=== PATIENT | female | born 1955 | race Caucasian/White ===

== ENCOUNTER 2017-12-31 14:47 | Emergency (ER) | payer OTHER, SELFPAY ==
[2017-12-31 14:48] VITALS: BP 158/80; PULSE 68; RESP 18; TEMP 36.9; O2SAT 97; BMI 32.0
--- NOTE | 2017-12-31 15:08 | RAD_ITS ---
STUDY: X-RAY - LEFT KNEE REASON FOR EXAM: Female, 62 years old. Left-sided knee pain after recent trauma. TECHNIQUE: 3 view(s) of the knee. COMPARISON: None. FINDINGS: Normal visualized distal femur. Normal visualized proximal tibia and fibula. Normal proximal tibiofibular articulation. Normal medial femorotibial compartment. Normal lateral femorotibial compartment. Normal patellofemoral articulation. There is a small enthesophyte at the quadriceps tendon insertion onto the patella. There is a moderate volume joint effusion. The soft tissue structures are unremarkable. RAD/Knee 3 Views IMPRESSION: 1. Joint effusion. 2. Patellar enthesopathy. 3. No definite evidence for acute fracture. If there is still clinical concern for acute fracture, follow-up radiographs in 7-10 days maybe helpful in evaluating a healing radiographically occult fracture. Electronically Signed: Melba Styles MD at 15:43 EDT , Service support ,
[2017-12-31] MEDS: HYDROcodone Bitartrate/Apap 5/325 Tablet PO (15:17)
--- NOTE | 2017-12-31 15:49 | ED.DCSUM_ITS ---
- ER Visit Summary Date of Service: 12/31/17 Chief Complaint: [Injury left knee] History of Present Illness: The patient is a 62 F [presents to the emergency department with injury to her left knee that occurred this morning around 11:30 AM. Patient states she was standing on a chair painting when she fell off the chair and upon landing to the ground twisted the knee. Patient unable to bear weight afterwards. Patient denies any other injury.] Physical Examination: [HEENT-PERRLA, EOMI. Cranial nerves II through XII grossly intact. TMs clear. Mucous membranes moist. No adenopathy. Cardiovascular-regular rate and rhythm without murmur or ectopy Lungs-clear to auscultation, chest wall stable without crepitus or subcu emphysema Abdomen-normoactive bowel sounds, soft, nontender, no rebound or rigidity, no peritoneal signs. Extremities-intact ?4, normal range of motion, normal pulses, atraumatic. Left knee-patient has some diffuse soft tissue swelling and a joint effusion noted. Patient has pain with range of motion flexion extension of the knee. Patient neurovascular intact distally. She does not tolerate ligamentous exam secondary to pain.] Test Results: [X-rays of the left knee obtained showed no fractures. Patient did have an effusion noted.] Emergency Department Course and Treatment: [Patient was given 1 [place] for pain. Patient given a knee immobilizer and crutches.] Treatment Plan: [Patient will be given a prescription for [place] for pain and she is advised to take ibuprofen or Aleve for discomfort as well.] Disposition: [Discharged home in stable condition. Patient advised to follow- up with orthopedics on-call within next 3-5 days.] Impression: [Left knee sprain-possible internal derangement.] This note was generated with Launchr dictation software. It may contain incorrect words, spelling, and punctuation that were not noted in review of the chart prior to signing ED Disposition - Plan for ED Patient: Chief Complaint: Lower Extremity Injury Referrals: Byron Sanders [Primary Care Provider] -
--- NOTE | 2017-12-31 15:49 | ED.DEP ---
ED Disposition - Plan for ED Patient: Chief Complaint: Lower Extremity Injury Instructions: ED Sprain Knee, ED Meniscal Injury Knee Poss Prescriptions: Hydrocodone Bitart/Apap 5-325 [[place] 5/325] 1 - 2 tab PO Q4H PRN PRN 5 Days #20 tab PRN Reason: Pain Referrals: Byron Sanders [Primary Care Provider] - Peri Aggarwal DO [STAFF PHYSICIAN] - 3-5 Days
[2017-12-31 15:58] VITALS: BP 140/75; PULSE 66; RESP 18; O2SAT 94
== END 2017-12-31 16:15 | disposition home or self-care (01) ==
PROVIDERS: Emergency Provider Emergency Medicine; Family Provider Family Medicine; PCP Family Medicine
DX: S83.92XA Sprain of unspecified site of left knee, initial encounter (principal); M25.462 Effusion, left knee; I10 Essential (primary) hypertension; F41.9 Anxiety disorder, unspecified; Z79.899 Other long term (current) drug therapy; W07.XXXA Fall from chair, initial encounter; Y93.E9 Activity, other interior property and clothing maintenance; Y92.009 Unspecified place in unspecified non-institutional (private) residence as the place of occurrence of the external cause; Y99.8 Other external cause status
CPT/HCPCS: 73562; 99284

== ENCOUNTER 2019-06-24 11:58 | Day surgery (SDC) | payer OTHER, SELFPAY ==
--- NOTE | 2019-06-20 16:13 | EKG12_ITS ---
Test Reason : PREOP Blood Pressure : / mmHG Vent. Rate : 063 BPM Atrial Rate : 063 BPM P-R Int : 174 ms QRS Dur : 106 ms QT Int : 438 ms P-R-T Axes : 063 032 042 degrees QTc Int : 448 ms Normal sinus rhythm Possible Left atrial enlargement Borderline ECG Confirmed by JORJE RIBEIRO ([id number]), society editor MARTY BRUNNER ([id number]) on 06/24/2019 2:02:34 PM Referred By: Markell Quinones Confirmed By:JORJE RIBEIRO
[2019-06-20 17:15] LABS: Hematocrit 44.4 % (37-47); Hemoglobin 14.1 g/dL (12.0-15.0); Mean Corp Hgb Conc 31.8 g/dL (32-36); Mean Corpuscular Hgb 30.8 pg (27.0-32.0); Mean Corpuscular Volume 96.9 fL (81-99); Mean Platelet Vol. 10.4 fl (6.2-12.0); Platelet Count 363 K/mm3 (150-450); RBC Distribution Width CV 11.3 % (11.6-14.6); RBC Distribution Width SD 40.1 fl (35.1-43.9); Red Blood Count 4.58 M/mm3 (4.2-5.4); White Blood Count 8.7 K/mm3 (4.4-11.0)
[2019-06-20 17:29] LABS: International Normalized Ratio 1.1; Prothrombin Time (Protime)PT. 14.3 SECONDS (11.7-14.9)
[2019-06-20 17:30] LABS: Partial Thromboplast Time 30.7 Seconds (24.1-36.2)
[2019-06-20 18:03] LABS: ALB/GLOB Ratio 1.1 RATIO (0.9-2.4); AST(SGOT) 15 U/L (15-37); Alanine Aminotransfer ALT/SGPT 22 U/L (13-56); Albumin, Serum 3.9 g/dL (3.2-5.0); Alkaline Phosphatase 119 U/L (45-117); Anion Gap 8 (5-15); BUN 15 mg/dL (7-18); BUN/Creat Ratio 18.8 RATIO (10-20); Calcium,Total 8.8 mg/dL (8.5-10.1); Chloride 107 mmol/L (98-107); EST Glomerular Filtration Rate 77 mL/min (>60); Est Glom Filt Rate - Afr Amer 94 mL/min (>60); Globulin 3.5 g/dL (2.2-4.2); Glucose 84 mg/dL (74-106); Potassium 3.2 mmol/L (3.5-5.1); Protein, Total 7.4 g/dL (6.4-8.2); Sodium Level 143 mmol/L (136-145)
--- NOTE | 2019-06-23 16:17 | PCM.HP.BLA ---
History and Physical Date of Admission: 06/24/19 Surgical History and Physical Ida Young, a 63 year old female 3 0 1 0 3, presents for Posterior, possible Anterior Repair on June at 8:45. -- Prolapse Symptoms; Rectocele -- Ida has had prior hysterectomy. Complains of her insides coming out. She has problems having a bowel movement due to feeling like she is pushing too hard and bladder will come out. Sometimes she has to push her bladder back inside.Pt has hx of anxiety, hypertension and mitral valve prolapse. Prolapse symptoms which began years ago. Ida claims it started gradually It occurs all the time. It is located in the vagina. Ida characterizes the quality pressure. Severity is moderate and worsening; It is aggravated by gardening. Associated signs and symptoms are problems with bowel movements. Additional comments are: prior hysterectomy; was on estrogen for years and stopped it about 4-5 years ago. MEDICATIONS HISTORY: Current medications prescribed by our practice are: 1. Estrace 0.01% (0.1 mg/gram) vaginal cream, 1/2 gm per vagina twice weekly at Patient is also takin. citalopram 20 mg tablet, daily 2. diltiazem ER 240 mg tablet,extended release 24 hr, bid ALLERGIES: No Known Drug Allergies Infections - Chicken pox, Mumps and Measles Illnesses - hypertension, mitral valve prolapse and anxiety Accidents - None Hospitalizations - Childbirth and surgery Review of Systems: GENERAL - Denies fever, or chills SKIN - Denies skin changes EYES - Denies visual changes EARS - Denies difficulty hearing NOSE - Denies nasal congestion or bleeding MOUTH - Denies sore throat or difficulty swallowing NECK - Denies pain or swelling RESPIRATORY - Denies shortness of breath or wheezing CARDIOVASCULAR - Denies palpitations or chest pain GASTROINTESTINAL - Denies nausea, vomiting, diarrhea, constipation GENITOURINARY - Denies dysuria, frequency of urination, incontinence of urine MUSCULOSKELETAL - Denies joint or muscle pain NEUROLOGICAL - Denies localized numbness or weakness PSYCHIATRIC - Denies depression or anxiety ENDOCRINE - Denies heat or cold intolerance, weight loss or gain HEMATO-IMMUNOLOGIC - Denies excessive bleeding with cuts SOCIAL HISTORY: Alcohol Use - denies drinking Smoking - denies smoking Diet - moderate, balanced diet Lifestyle - Exercise - none Seat Belt Use - always Employer - [employer] 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 Hysterectomy 2. Herniated Disc 1989 3. 2 D and C PHYSICAL EXAM BP- 130/72 Sitting, Right arm, regular cuff Temp- 98 Taken Orally Weight- 143.55498 lbs Height- 62.75 inch BMI:25.62 CONSTITUTIONAL - NAD, well nourished, and well developed SKIN - No rash, lesions, or ulcers HEENT - Normocephalic, PERRLA, EOMI NECK - No nodes, no nuchal rigidity and thyroid normal size and texture LYMPH NODES - Palpation of lymph nodes in neck and groins within normal limits LUNGS - CTA x2 without wheezes, crackles or rales CARDIAC - Regular rate and rhythm without rubs, murmurs, or gallops ABDOMEN - Without hepatosplenomegaly, distention, masses, rebound, or guarding; normal bowel sounds; no hernias EXTREMITIES - No edema or calf tenderness NEUROLOGICAL - Cranial nerves II-XII grossly intact PSYCHIATRIC - A and O to time, place, person, mood and affect External Genitial Vagina - non-tender without lesions Urethra/Urethral Meatus - non-tender Bladder - non-tender Vagina - loss of rugae, mild cystocele and large rectocele Cervix - Prior hysterectomy-well healed vaginal cuff Uterus - prior hysterectomy-absent Adnexa - clear without masses or tenderness ASSESSMENT/PLAN: 1. Cystocele Midline and Rectocele Discussed options for treatment of this very symptomatic rectocele (possible cystocele) including expectant management, pessary use, or proceeding with Posterior Repair (possible Anterior Repair). Pt desires the surgery. Discussed RBAs and all questions answered.
[2019-06-24] VITALS (11 sets, daily range): BP systolic 86–140; BP diastolic 49–83; PULSE 53–79; RESP 14–18; TEMP 36.2–36.8; O2SAT 92–97; BMI 23.8
[2019-06-24] MEDS: Lactated Ringers 1,000 ML 100 ML IV ×2 (13:13→15:15)
--- NOTE | 2019-06-24 13:30 | VAGMU_PTH ---
PATIENT: HOSSEIN HADDAD LOC: [facility] [place] U#:[id number] AGE/SX: 63/F ROOM: RE06/24/[address]: Dr. Markell Quinones MD : [id number] BED: DIS: 06/25/2019 SPEC #: [id number] RECD: 06/25/19 08:07 STATUS: KYLIE REVanessa #: [id number] ALLEN: 06/24/19 13:[address]: Markell Quinones DEPT: SURGICAL PATHOLOGY RECD BY: Tong Robb ENTERED: 06/25/19 11:38 SP TYPE: VAG MUCOSA OTHR DR: Dr. Byron Sanders, DO Tissues: Vagina, NOS Procedures: Surgery Specimen Level III HEADER OPERATION: Posterior repair PRE-OP DIAGNOSIS: Cystocele midline and rectocele TISSUE SUBMITTED: Vaginal mucosa MICROSCOPIC DIAGNOSIS Vaginal mucosa, posterior repair: Fragments of benign squamous mucosa with mild chronic inflammation. AM:dagoberto 06/26/19 MICROSCOPIC DESCRIPTION Slides are reviewed. GROSS DESCRIPTION Received in fixative is one container labeled with the patient's name and designated vaginal mucosa. The specimen consists of glistening irregular fragments of light jo mucosa with attached submucosal tissue measuring in aggregate 6.5 x 5 x 1 cm. No mucosal mass lesions are identified. Pattern Fitter sections are submitted in one cassette. / AM:dagoberto 06/25/19 TC:3 CPT: 16764
--- NOTE | 2019-06-24 14:38 | PCM.OPRPT ---
Report of Operation Date of Procedure: 06/24/19 Pre-Operative Diagnosis: Symptomatic Rectocele Post-Operative Diagnosis: Symptomatic Rectocele Surgery/Procedure Performed:: Posterior Repair Description of Surgical Findings:: Rectocele that protruded 3 cm outside the vaginal introitus. Mild cystocele. Prior hysterectomy. infrastructure developer: David Muhammad infrastructure developer: Sahara Larson Type of Anesthesia:: General - LMA Anesthesiologist: Zaid Hanna Specimen's removed: Vaginal mucosa Drains: Gibbs to straight drain Estimated Blood Loss (mL): 100 cc Fluids Replaced: Crystalloid Description of Procedure: Surgeon: Markell Quinones MD, FACOG Indications: This is a 63-year-old patient who is been having problems with symptomatic vaginal prolapse. She had a prior hysterectomy. Conservative measures have not been helpful. Given this the patient desires that we proceed the above procedure. She has been counseled regarding the risk and indications of this procedure including the possibility of bleeding, infection, and injury to surrounding structures such as bowel bladder. All questions were answered. Procedure: Patient was taken to the operating room where after induction of general anesthesia she was placed in the dorsal lithotomy position and prepped and draped in the usual sterile fashion. The bladder was drained of approximately 50 cc of clear yellow urine with a Gibbs catheter which was left in place. Remnants of the hymenal ring were grasped with Allises and a V-shaped incision was made in the perineum. Rectovaginal mucosa was then undermined divided and then imbricated toward the midline with interrupted 0 Vicryl suture. Vaginal mucosa was trimmed and then closed with running locked 2-0 chromic suture. Remnants of the bulbocavernosus muscles were identified and brought toward the midline with a single [id number] 0 Vicryl suture and perineum was closed in the usual fashion with running and subcuticular, and [id number] 2-0 chromic suture. Hemostasis was noted. Gibbs catheter was placed and clear yellow urine was noted. Vagina was packed with iodoform tape. At this point in the procedure we were noted to be one short of a Ray-John sponge. X-ray was immediately called and this Ray-John sponge was noted to be just below the vaginal mucosal on the right side. 3 sutures were cut and this sponge was easily recovered with 0 Vicryl suture used to close the rectovaginal mucosa and 2-0 chromic suture used in a running fashion to reapproximate the vaginal mucosa. Peritoneum was closed in the usual fashion with 2-0 chromic suture. It was not necessary to disturb the neoperineorrhaphy repair when retrieving the sponge. Iodoform tape was replaced and hemostasis was noted. Rectal examination was normal. Gibbs catheter was open and urine was noted to be clear. Patient tolerated the procedure well was taken to recovery room in satisfactory condition; sponge instrument and needle counts were all reportedly correct. Estimated blood loss for the case was 100 cc. Cefotan 2 g IV was given prior to beginning the operative procedure. There were no apparent complications of the surgery. Specimen to pathology was vaginal mucosa. Grafts/Implants Used: None - Complications None. (Ray-John sponge loss but it was recovered with the assistance of intraoperative x-ray.) - Admit VTE Documentation VTE Present on Admission: Yes VTE Mechan Device Prophylaxis: SCD's VTE Pharm Prophylaxis ordered?: Yes
--- NOTE | 2019-06-24 14:41 | DCINST_ITS ---
Discharge Diet: No Restrictions Discharge Activity: Return to Normal Activity, May Not Drive - while taking narcotic pain medications., May Shower May resume sexual activity in: 6-8 weeks Call your doctor if your incision/area has: Continuous Slow Oozing, Sudden Increased Bleeding, Increased Pain/ Swelling, Increased Redness, Foul Smelling Discharge Call your doctor if you observe: Fever of 101 or Higher, Inability to urinate, Inability to have a bowel movement, Using more than one pad per hour Allergies/Adverse Reactions: Allergies No Known Allergies Allergy (Verified 06/17/19 12:54) Medications to take at Discharge Citalopram [Celexa] 1 tab PO DAILY 12/31/17 Diltiazem HCl [Diltiazem ER] 240 mg PO BID 12/31/17 Docusate Sodium [Colace] 100 mg PO BID PRN PRN #60 cap 06/24/19 Oxycodone [Oxyir] 5 mg PO Q6H PRN PRN 7 Days #10 tab 06/24/19 The following prescriptions were given: Docusate Sodium [Colace] 100 mg PO BID PRN PRN #60 cap PRN Reason: Constipation Prescription Printed Oxycodone [Oxyir] 5 mg PO Q6H PRN PRN 7 Days #10 tab PRN Reason: Severe Pain (-07/18) Prescription Printed Primary Care Physician: Byron Sanders [Primary Care Provider] - Test Results: Test results from this visit will be discussed in further detail at your follow- up appointment, if applicable. Please Follow Up With: Markell Quinones MD When: 2 to 3 weeks
--- NOTE | 2019-06-24 15:33 | RAD_ITS ---
We are attempting to reach an attending provider to discuss findings. An addendum with communication details will be sent when the communication is complete. STUDY: X-RAY - PELVIS REASON FOR EXAM: Female, 63 years old. TECHNIQUE: One view of the pelvis was obtained. COMPARISON: None. FINDINGS: There is a sponge marker projecting over the lower pelvis immediately above the symphysis pubis. Surgical tubing is overlying the patient. 2 metallic instruments are present overlying the left flank, extrinsic to the patient. Osseous structures are unremarkable. RAD/Pelvis 1 or 2 Views IMPRESSION: Surgical sponge in the lower pelvis. Electronically Signed: Eladia Rock, at 16:14 EDT Tel , Service support ,
[2019-06-24] MEDS: Enoxaparin 30 MG/0.3 ML Syringe SC (18:20)
[2019-06-24] MEDS: Dextrose 5%-Lactated Ringers 1,000 ML 125 ML IV (18:21)
[2019-06-24] MEDS: Ketorolac 15 MG/ML Vial IV (20:27)
[2019-06-24] MEDS: 0.9% NaCl Peripheral Flush Adult/Peds IV (20:31)
[2019-06-24] MEDS: dilTIAZem CD 240 MG Capsule PO (21:33)
[2019-06-25] MEDS: Dextrose 5%-Lactated Ringers 1,000 ML 125 ML IV (02:20)
[2019-06-25] MEDS: Docusate Sodium 100 MG Capsule PO (02:32)
[2019-06-25 02:40] VITALS: BP 116/64; PULSE 70; RESP 16; TEMP 36.9; O2SAT 96
[2019-06-25] MEDS: Ketorolac 15 MG/ML Vial IV (02:40)
[2019-06-25 05:52] LABS: Hematocrit 40.5 % (37-47); Hemoglobin 13.4 g/dL (12.0-15.0); Mean Corp Hgb Conc 33.1 g/dL (32-36); Mean Corpuscular Volume 96.7 fL (81-99); Mean Platelet Vol. 9.9 fl (6.2-12.0); Platelet Count 360 K/mm3 (150-450); RBC Distribution Width SD 39.2 fl (35.1-43.9); Red Blood Count 4.19 M/mm3 (4.2-5.4); White Blood Count 14.9 K/mm3 (4.4-11.0)
[2019-06-25 06:08] LABS: Creatinine, Serum 0.88 mg/dL (0.55-1.02); EST Glomerular Filtration Rate 70 mL/min (>60); Est Glom Filt Rate - Afr Amer 84 mL/min (>60); Estimated Creatinine Clearance 57.97 ml/min
--- NOTE | 2019-06-25 06:43 | PCM.PN.OB ---
Subjective: Patient without complaints. Tolerating diet well. Minimal vaginal bleeding noted. Pain well controlled. Denies flatus. - Physical Exam Vital Signs Temp Pulse Resp BP Pulse Ox 98.4 F 70 16 116/64 96 06/25/19 02:40 06/25/19 02:40 06/25/19 02:40 06/25/19 02:40 06/25/19 02:40 Oxygen Flow Rate (L/min) 2 Oxygen Delivery Method Room Air Weight: 142 lb 3.17 oz Body Mass Index (BMI) 23.8 Intake and Output for Last 24 Hours 06/23/19 06/24/19 06/25/19 23:59 23:59 23:59 Intake Total 1431.67 / 1631.67 2210.42 / 2210.42 Output Total 500 / 1150 1100 / 1100 Balance 931.67 / 481.67 1110.42 / 1110.42 Laboratory Tests Past 24 Hrs 06/25/19 06/25/19 05:25 05:25 WBC 14.9 H RBC 4.19 L Hgb 13.4 Hct 40.5 MCV 96.7 MCH 32.0 MCHC 33.1 RDW Std Deviation 39.2 RDW Coeff of Martha 11.0 L Plt Count 360 MPV 9.9 Creatinine 0.88 Estim Creat Clear Calc 57.97 Est GFR (MDRD) Af Amer 84 Est GFR (MDRD) Non-Af 70 Vaginal pack removed with minimal vaginal bleeding noted. Hemoglobin and creatinine okay. Medical Necessity - Tobacco Use Smoking Status: Former smoker Tobacco Use: Non-smoker Assessment/Plan Doing well postoperative day #1 status post posterior repair. Will discharge to home with routine instructions.
[2019-06-25 07:45] VITALS: O2SAT 95
[2019-06-25 08:05] VITALS: BP 136/60; PULSE 67; RESP 18; TEMP 36.8; O2SAT 95
[2019-06-25] MEDS: Ketorolac 10 MG Tablet PO (09:14)
== END 2019-06-25 10:00 | disposition home or self-care (01) ==
LOC: SDC 12:01 → AC 12:15 → MS3 12:17
PROVIDERS: Family Provider Family Medicine; PCP Family Medicine; Referring Provider Obstetrics & Gynecology; Visit Provider Obstetrics & Gynecology
PROC: (CPT 57250; principal; 2019-06-24 13:15)
DX: N76.0 Acute vaginitis (principal); N81.6 Rectocele; N99.3 Prolapse of vaginal vault after hysterectomy; F41.9 Anxiety disorder, unspecified; I10 Essential (primary) hypertension; I34.1 Nonrheumatic mitral (valve) prolapse; Z87.891 Personal history of nicotine dependence; Z79.899 Other long term (current) drug therapy
CPT/HCPCS: 57250; 36415; 72170; 80053; 82565; 85027; 85610; 85730; 86850; 86900; 86901; 88304; 93005; J7120; A4216; J2405

== ENCOUNTER 2021-12-29 02:14 | Emergency (ER) | payer OTHER, SELFPAY ==
[2021-12-29 02:14] VITALS: BP 193/82; PULSE 82; RESP 15; TEMP 36.5; O2SAT 95; BMI 31.4
--- NOTE | 2021-12-29 02:34 | EX.ED.DYSGE1 ---
HPI History of Present Illness Chief Complaint: Nausea/Vomiting Informant: patient Narrative Narrative: Is an with nausea vomiting and cramping. She states this started about 30 minutes after eating [employer]. She ate [employer] around 7 or 730 tonight. She states the onions did not taste right but she kept eating them. She has not had fevers or chills. She states she gets cramping that is in all different spots. She has not had diarrhea. Only surgery is hysterectomy. She denies any history of diverticulitis. She has no chest pain shortness of breath. She states she has vomited about 7 or 8 times but no blood. Nothing really makes symptoms better or worse. Of note, it is very hard to get the details from this patient. She will oftentimes state no when she actually means yes. She will shake her head yes while saying words no. I have to ask most questions several times to make sure I am actually getting the correct answer. PFSH PFSH Home Medications citalopram 1 tab PO DAILY 12/31/17 [History Last Taken Unknown] diltiazem HCl 240 mg PO BID 12/31/17 [History Last Taken 06/24/19 10:00 240 MG] docusate sodium 100 mg PO BID PRN PRN #60 cap 06/24/19 [Rx Last Taken Unknown] ondansetron 4 mg PO Q8H PRN #10 tab 12/29/21 [Rx Last Taken Unknown] oxycodone-acetaminophen [Percocet] 1 tab PO Q6H PRN 3 Days #12 tab 12/29/21 [Rx Last Taken Unknown] promethazine [Promethegan] 25 mg RECTAL Q6H PRN PRN #6 suppos. 12/29/21 [Rx Last Taken Unknown] tamsulosin [Flomax] 0.4 mg PO DAILY #7 cap 12/29/21 [Rx Last Taken Unknown] Allergy/AdvReac Type Severity Reaction Status Date / Time No Known Allergies Allergy Verified 12/29/21 02:17 Social History Smoking Status: Former smoker ROS ROS ED Constitutional Constitutional ED: Denies chills or fever(s) ENT ENT ED: Denies rhinorrhea or sore throat Cardiovascular Cardiovascular: Denies chest pain or palpitations Respiratory/Chest Respiratory/Chest: Denies cough or dyspnea Gastrointestinal Gastrointestinal: Reports abdominal pain, nausea and vomiting; Denies constipation, diarrhea or melena Genitourinary Genitourinary ED: Denies dysuria, hematuria or urinary frequency Musculoskeletal Musculoskeletal: Denies back pain Integumentary Denies rash Neurologic Neurologic: Denies headache(s) Endocrine Endocrinology: Denies polydipsia or polyuria Allergic/Immunologic Allergic/Immunologic ED: Denies urticaria EXAM Physical Exam Const Vital Signs: 12/29/21 02:14 12/29/21 05:02 Temperature 97.7 F L Temperature Source Temporal Pulse Rate 82 93 Respiratory Rate 15 16 Blood Pressure 193/82 H 169/106 H Blood Pressure Mean 119 Pulse Ox 95 94 Oxygen Delivery Method Room Air Positive well nourished and well developed General Appearance ED: well developed and NAD HEENT Reports moist mucous membranes Eyes General Eye ED: Negative for pale conjunctiva or scleral icterus Neck no JVD Chest Wall inspection of chest normal Resp normal respiratory effort and clear to auscultation bilaterally Cardio regular rate and regular rhythm GI normal to inspection, nondistended, normoactive bowel sounds, non-tender, non-distended and no masses Auscultation: normoactive bowel sounds Palpation: soft; Negative for tender or guarding Back/Spine no CVA tenderness Extremity normal to inspection General Extremety ED: Negative for edema or tenderness General Extremity: Negative for edema Neuro Sensorium / Orientation: alert Psych mental status grossly normal Skin no rashes or lesions noted MDM MDM MDM Narrative Medical decision making narrative: Patient did have an elevated white count. This could be from multiple causes including some demargination from pain. Electrolytes are overall unremarkable. Liver function test did not show any marked abnormalities. Glucose is slightly elevated. Urine is clean. I talked with the patient again. It sounds like she is still nauseated. However she has not vomited anymore. The pain is better but still present. We will get her some meds for pain here. I will also get more nausea meds. CT scan did show a kidney stone on the left. I think patient can go home. We will have her follow-up with urology. I discussed reasons to return. Lab Data Attestation: I reviewed the patient's lab results. Labs: Laboratory Results - last 24 hr 12/29/21 12/29/21 12/29/21 02:40 02:40 03:05 WBC 15.6 H RBC 4.89 Hgb 15.5 H Hct 45.9 MCV 93.9 MCH 31.7 MCHC 33.8 RDW Std Deviation 41.8 RDW Coeff of Martha 12.1 Plt Count 373 MPV 10.4 Immature Gran % (Auto) 0.300 Neut % (Auto) 87.5 H Lymph % (Auto) 6.5 L Phelps % (Auto) 5.3 Eos % (Auto) 0.1 Baso % (Auto) 0.3 Absolute Neuts (auto) 13.7 H Absolute Lymphs (auto) 1.02 Nucleated RBC % 0 Sodium 140 Potassium 3.6 Chloride 108 H Carbon Dioxide 23.0 Anion Gap 9 BUN 14 Creatinine 0.98 Estim Creat Clear Calc 47.97 Est GFR (MDRD) Af Amer 74 Est GFR (MDRD) Non-Af 61 BUN/Creatinine Ratio 14.3 Glucose 162 H Calcium 8.8 Total Bilirubin 0.70 AST 40 H ALT 43 Alkaline Phosphatase 125 H Total Protein 7.6 Albumin 3.9 Globulin 3.7 Albumin/Globulin Ratio 1.1 Lipase 117 Urine Color Straw Urine Clarity Clear Urine pH 7.0 Ur Specific [place] 1.010 Urine Protein 30 H Urine Glucose (UA) 50 H Urine Ketones Negative Urine Occult Blood 25 H Urine Nitrite Negative Urine Bilirubin Negative Urine Urobilinogen Normal Ur Leukocyte Esterase Negative Urine RBC 0 SEEN Urine WBC 0-5 SEEN Ur Squamous Epith Cells 0 SEEN Urine Bacteria 0 SEEN Urine Mucus 0 SEEN Radiography Diagnostic Testing: Clinical Impression(s) from Imaging Studies Abdomen/Pelvis CT 12/29/21 04:11 IMPRESSION: 3 mm calculus at the left UVJ with mild to moderate upstream dilatation of the collecting system. Left renal enlargement and perinephric stranding/fluid are likely postobstructive findings such as from forniceal rupture. Correlate clinically to exclude any superimposed infection. Electronically Signed: Sony Butcher MD at 4:41 EDT , Discharge Plan Triage Chief Complaint: Nausea/Vomiting ED Provider: Samson Coronel Dx/Rx/DC Orders Clinical Impression: Kidney stone on left side, Nausea & vomiting Instructions: ED Kidney Stone w/ Colic Prescriptions: New promethazine [Promethegan] 25 MG suppository 25 mg RECTAL Q6H PRN PRN (Reason: Nausea) Qty: 6 RF: 0 oxycodone-acetaminophen [Percocet] 5-325 mg tablet 1 tab PO Q6H PRN (Reason: pain) 3 Days Qty: 12 RF: 0 ondansetron 4 mg tablet,disintegrating 4 mg PO Q8H PRN (Reason: nausea and vomiting) Qty: 10 RF: 0 tamsulosin [Flomax] 0.4 mg capsule 0.4 mg PO DAILY Qty: 7 RF: 0 No Action diltiazem HCl 240 MG capsule,ext.rel 24h degradable 240 mg PO BID RF: 0 citalopram 10 MG tablet 1 tab PO DAILY RF: 0 docusate sodium 100 MG capsule 100 mg PO BID PRN PRN (Reason: Constipation) Qty: 60 RF: 1 Primary Care Provider: Byron Sanders Referrals: Byron Sanders DO [Primary Care Provider] - Yeni Jones MD [STAFF PHYSICIAN] - 3-5 Days Disposition Disposition: Home, Self Care Discharge Date/Time: 12/29/21 05:07
[2021-12-29] MEDS: Ondansetron 4 MG/2 ML Vial IV (02:43)
[2021-12-29] MEDS: Dicyclomine 20 MG/2 ML Vial IM (02:43)
[2021-12-29] MEDS: 0.9% Normal Saline 1,000 ML 1000 ML IV (02:43)
[2021-12-29 02:53] LABS: Absolute Lymphocyte Count 1.02 X10^3/uL (0.83-4.51); Absolute Neutrophil Count 13.7 X10^3/uL (2.0-7.7); Basophil# 0.05 X10^3/uL; Basophil% 0.3 % (0-1); Eosinophil# 0.02 X10^3/uL; Eosinophils% 0.1 % (0-5); Hematocrit 45.9 % (37-47); Hemoglobin 15.5 g/dL (12.0-15.0); Lymphocyte # 1.02 X10^3/ul (0.83-4.51); Lymphocyte % 6.5 % (19-41); Mean Corp Hgb Conc 33.8 g/dL (32-36); Mean Corpuscular Hgb 31.7 pg (27.0-32.0); Mean Corpuscular Volume 93.9 fL (81-99); Mean Platelet Vol. 10.4 fl (6.2-12.0); Monocyte# 0.83 X10^3/uL; Monocyte% 5.3 % (0-10); NRBC Flagged by Analyzer 0 % (0-5); Neutrophil # 13.65 X10^3/uL (2.7-7.7); Neutrophil % 87.5 % (47-70); Platelet Count 373 K/mm3 (150-450); RBC Distribution Width CV 12.1 % (11.6-14.6); RBC Distribution Width SD 41.8 fl (35.1-43.9); Red Blood Count 4.89 M/mm3 (4.2-5.4); White Blood Count 15.6 K/mm3 (4.4-11.0)
[2021-12-29 03:10] LABS: ALB/GLOB Ratio 1.1 RATIO (0.9-2.4); AST(SGOT) 40 U/L (15-37); Alanine Aminotransfer ALT/SGPT 43 U/L (13-56); Albumin, Serum 3.9 g/dL (3.2-5.0); Alkaline Phosphatase 125 U/L (45-117); Anion Gap 9 (5-15); BUN 14 mg/dL (7-18); BUN/Creat Ratio 14.3 RATIO (10-20); Calcium,Total 8.8 mg/dL (8.5-10.1); Chloride 108 mmol/L (98-107); Creatinine, Serum 0.98 mg/dL (0.55-1.02); EST Glomerular Filtration Rate 61 mL/min (>60); Est Glom Filt Rate - Afr Amer 74 mL/min (>60); Estimated Creatinine Clearance 47.97 ml/min; Globulin 3.7 g/dL (2.2-4.2); Glucose 162 mg/dL (74-106); Lipase 117 U/L (73-393); Potassium 3.6 mmol/L (3.5-5.1); Protein, Total 7.6 g/dL (6.4-8.2); Sodium Level 140 mmol/L (136-145)
[2021-12-29 03:12] LABS: Bacteria 0 SEEN /hpf (None Seen); Mucous, Urine 0 SEEN /hpf (<or=2+); Red Blood Cells-Urine 0 SEEN /hpf (0-5); Squamous Epithelial Cells - UA 0 SEEN /hpf (5-10)
[2021-12-29 03:32] LABS: Color, Urine Straw (Yellow); Glucose, Dipstick 50 mg/dl (Normal); Ketone-Dipstick Negative (Negative); Leukocyte Esterase-Dipstick Negative /ul (Negative); Nitrite-Dipstick Negative (Negative); Occult Blood-Urine 25 /ul (Negative); Protein-Dipstick 30 mg/dl (Negative); Urine Bilirubin Dipstick Negative (Negative); Urine Clarity Clear (Clear); Urine Urobilinogen Normal (Normal)
[2021-12-29 03:44] LABS: White Blood Cells 0-5 SEEN /hpf (0-5)
--- NOTE | 2021-12-29 04:11 | CT_ITS ---
EXAM: CT ABDOMEN AND PELVIS WITH INTRAVENOUS CONTRAST CLINICAL INDICATION: pain TECHNIQUE: Helically acquired images were obtained of the abdomen and pelvis with intravenous contrast. CTDIvol = ( 14.47 ) mGy, DLP = ( 1212.15 ) mGycm This CT exam was performed using one or more of the following dose reduction techniques: automated exposure control, adjustment of the mA and/or kV according to patient size, and/or use of iterative reconstruction technique. This report was created using [employer] report generation technology. CONTRAST: IV 100mL [id number] COMPARISON: None. FINDINGS: LOWER THORAX: Small pericardial effusion without cardiomegaly. Lung bases are clear. ABDOMEN: LIVER: Unremarkable. Homogeneous. No focal mass. GALLBLADDER AND BILE DUCTS: Unremarkable. No calcified gallstones. No gallbladder distention or wall edema. No intra- or extrahepatic biliary ductal dilation. PANCREAS: Unremarkable. No focal cystic or solid mass. SPLEEN: Unremarkable. Normal size without focal cystic or solid mass. ADRENALS: Unremarkable. No nodules. KIDNEYS AND URETERS: 3 mm calculus at the left UVJ with mild to moderate upstream dilatation of the collecting system. Left renal enlargement and perinephric stranding/fluid are likely postobstructive findings such as from forniceal rupture. Correlate clinically to exclude any superimposed infection. Normal renal size and position. STOMACH AND BOWEL: Unremarkable. No stomach or bowel distention. No focal inflammatory change. PELVIS: APPENDIX: No evidence of acute appendicitis. BLADDER: Unremarkable. REPRODUCTIVE: Unremarkable as visualized. No mass. ABDOMEN and PELVIS: INTRAPERITONEAL SPACE: Unremarkable. No ascites or other fluid collection. No free air. BONES/JOINTS: Degenerative changes of spine. No unusual lytic or sclerotic lesions of bone. SOFT TISSUES: Unremarkable. No discrete abdominal or pelvic wall hernia. VASCULATURE: Unremarkable. Abdominal aorta is non-dilated. LYMPH NODES: Unremarkable. No enlarged lymph nodes. CT/Abdomen/Pelvis W IV Cont ONLY IMPRESSION: 3 mm calculus at the left UVJ with mild to moderate upstream dilatation of the collecting system. Left renal enlargement and perinephric stranding/fluid are likely postobstructive findings such as from forniceal rupture. Correlate clinically to exclude any superimposed infection. Electronically Signed: Sony Butcher MD at 4:41 EDT ,
[2021-12-29] MEDS: proMETHazine 25 MG/ML Syringe 12.5 MG IM (04:35)
[2021-12-29] MEDS: Morphine 4 MG/ML Syringe IV (05:01)
[2021-12-29 05:02] VITALS: BP 169/106; PULSE 93; RESP 16; O2SAT 94
== END 2021-12-29 05:07 | disposition home or self-care (01) ==
PROVIDERS: Emergency Provider Emergency Medicine; PCP Family Medicine; Visit Provider Emergency Medicine
DX: N20.0 Calculus of kidney (principal); R11.2 Nausea with vomiting, unspecified; Z79.899 Other long term (current) drug therapy; Z87.891 Personal history of nicotine dependence
CPT/HCPCS: 74177; 80053; 81001; 83690; 85025; 96361; 96372; 96374; 96375; 99283; J7030; Q9967; A4216; J2405

== ENCOUNTER → 2022-11-15 | Outpatient (CLI) | payer OTHER, SELFPAY ==
[2022-11-15 07:40] LABS: Absolute Lymphocyte Count 2.09 X10^3/uL (0.83-4.51); Absolute Neutrophil Count 3.5 X10^3/uL (2.0-7.7); Basophil# 0.07 X10^3/uL; Eosinophil# 0.47 X10^3/uL; Eosinophils% 6.9 % (0-5); Hematocrit 44.8 % (37-47); Hemoglobin 14.7 g/dL (12.0-15.0); Lymphocyte # 2.09 X10^3/ul (0.83-4.51); Lymphocyte % 30.5 % (19-41); Mean Corp Hgb Conc 32.8 g/dL (32-36); Mean Corpuscular Hgb 31.3 pg (27.0-32.0); Mean Corpuscular Volume 95.3 fL (81-99); Mean Platelet Vol. 10.4 fl (6.2-12.0); Monocyte# 0.68 X10^3/uL; Monocyte% 9.9 % (0-10); NRBC Flagged by Analyzer 0 % (0-5); Neutrophil # 3.53 X10^3/uL (2.7-7.7); Neutrophil % 51.4 % (47-70); Platelet Count 356 K/mm3 (150-450); RBC Distribution Width CV 11.7 % (11.6-14.6); RBC Distribution Width SD 41.1 fl (35.1-43.9); White Blood Count 6.9 K/mm3 (4.4-11.0)
[2022-11-15 08:33] LABS: ALB/GLOB Ratio 1.1 RATIO (0.9-2.4); AST(SGOT) 17 U/L (15-37); Alanine Aminotransfer ALT/SGPT 19 U/L (13-56); Albumin, Serum 3.8 g/dL (3.2-5.0); Alkaline Phosphatase 128 U/L (45-117); Anion Gap 7 (5-15); BUN 11 mg/dL (7-18); BUN/Creat Ratio 14.9 RATIO (10-20); Calcium,Total 9.3 mg/dL (8.5-10.1); Chloride 107 mmol/L (98-107); Cholesterol 189 mg/dL (200); Creatinine, Serum 0.74 mg/dL (0.55-1.02); EST Glomerular Filtration Rate 84 mL/min (>60); Est Glom Filt Rate - Afr Amer 102 mL/min (>60); Globulin 3.6 g/dL (2.2-4.2); Glucose 103 mg/dL (74-106); High Density Lipoprotein 62 mg/dL; Potassium 3.6 mmol/L (3.5-5.1); Protein, Total 7.4 g/dL (6.4-8.2); Sodium Level 144 mmol/L (136-145); Triglycerides 113 mg/dL; Very Low Density Lipoprotein 23 mg/dL (5-40)
== END | disposition home or self-care (01) ==
LOC: LAB 06:54
PROVIDERS: PCP Family Medicine; Referring Provider Family Medicine; Visit Provider Family Medicine
DX: I10 Essential (primary) hypertension (principal); Z13.220 Encounter for screening for lipoid disorders
CPT/HCPCS: 36415; 80053; 80061; 85025

== ENCOUNTER → 2023-03-14 | Outpatient (CLI) | payer OTHER, SELFPAY ==
[2023-03-14 10:36] LABS: Absolute Lymphocyte Count 1.68 X10^3/uL (0.83-4.51); Absolute Neutrophil Count 3.6 X10^3/uL (2.0-7.7); Basophil# 0.07 X10^3/uL; Basophil% 1.1 % (0-1); Eosinophil# 0.28 X10^3/uL; Eosinophils% 4.5 % (0-5); Hematocrit 44.8 % (37-47); Hemoglobin 14.2 g/dL (12.0-15.0); Lymphocyte # 1.68 X10^3/ul (0.83-4.51); Lymphocyte % 27.2 % (19-41); Mean Corp Hgb Conc 31.7 g/dL (32-36); Mean Corpuscular Hgb 31.1 pg (27.0-32.0); Mean Corpuscular Volume 98.2 fL (81-99); Mean Platelet Vol. 10.9 fl (6.2-12.0); Monocyte# 0.53 X10^3/uL; Monocyte% 8.6 % (0-10); NRBC Flagged by Analyzer 0 % (0-5); Neutrophil # 3.59 X10^3/uL (2.7-7.7); Neutrophil % 58.3 % (47-70); Platelet Count 331 K/mm3 (150-450); RBC Distribution Width CV 11.5 % (11.6-14.6); RBC Distribution Width SD 41.5 fl (35.1-43.9); Red Blood Count 4.56 M/mm3 (4.2-5.4); White Blood Count 6.2 K/mm3 (4.4-11.0)
[2023-03-14 11:06] LABS: Anion Gap 4 (5-15); BUN 10 mg/dL (7-18); BUN/Creat Ratio 14.7 RATIO (10-20); Calcium,Total 9.1 mg/dL (8.5-10.1); Chloride 106 mmol/L (98-107); Creatinine, Serum 0.68 mg/dL (0.55-1.02); EST Glomerular Filtration Rate 92 mL/min (>60); Est Glom Filt Rate - Afr Amer 112 mL/min (>60); Glucose 136 mg/dL (74-106); Sodium Level 139 mmol/L (136-145)
== END | disposition home or self-care (01) ==
LOC: LAB 09:25
PROVIDERS: PCP Family Medicine; Referring Provider Family Medicine; Visit Provider Family Medicine
DX: N20.0 Calculus of kidney (principal)
CPT/HCPCS: 36415; 80048; 85025

== ENCOUNTER → 2023-04-12 | Outpatient (CLI) | payer OTHER, SELFPAY ==
--- NOTE | 2023-04-12 16:45 | CT_ITS ---
EXAM: CT ABDOMEN AND PELVIS WITHOUT INTRAVENOUS CONTRAST CLINICAL INDICATION: L URETERAL STONE/ HYDRONEPROSIS / L FLANK PAIN TECHNIQUE: Helically acquired images were obtained of the abdomen and pelvis without intravenous contrast. CTDIvol = ( 10.74 ) mGy, DLP = ( 536.38 ) mGycm This CT exam was performed using one or more of the following dose reduction techniques: automated exposure control, adjustment of the mA and/or kV according to patient size, and/or use of iterative reconstruction technique. COMPARISON: December 29, 2021 CT FINDINGS: LOWER THORAX: Small pericardial effusion. No cardiomegaly. ABDOMEN: LIVER: Unremarkable. Homogeneous. GALLBLADDER AND BILE DUCTS: Unremarkable. No calcified gallstones. No gallbladder distention or wall edema. No intra- or extrahepatic biliary ductal dilation. PANCREAS: Unremarkable. No focal cystic mass. SPLEEN: Unremarkable. Normal size without focal cystic or solid mass. ADRENALS: Unremarkable. No nodules. KIDNEYS AND URETERS: Unremarkable. Normal renal size and position. No hydronephrosis. STOMACH AND BOWEL: Unremarkable. No stomach or bowel distention. No focal inflammatory change. PELVIS: APPENDIX: No evidence of acute appendicitis. BLADDER: Unremarkable. REPRODUCTIVE: Unremarkable as visualized. No mass. ABDOMEN and PELVIS: INTRAPERITONEAL SPACE: Unremarkable. No ascites or other fluid collection. No free air. BONES/JOINTS: Unremarkable. No suspicious lytic or blastic abnormality. SOFT TISSUES: Unremarkable. No discrete abdominal or pelvic wall hernia. VASCULATURE: Unremarkable. Abdominal aorta is non-dilated. LYMPH NODES: Unremarkable. No enlarged lymph nodes. CT/Abdomen/Pelvis without Cont IMPRESSION: No urolithiasis or hydronephrosis. No findings to explain the clinical presentation. Small pericardial effusion incidentally noted without cardiomegaly. Electronically Signed: Sony Butcher MD at 22:35 EDT ,
== END | disposition home or self-care (01) ==
LOC: CT 16:38
PROVIDERS: PCP Family Medicine; Referring Provider Urology; Visit Provider Urology
DX: N20.1 Calculus of ureter (principal); N13.30 Unspecified hydronephrosis; R10.9 Unspecified abdominal pain
CPT/HCPCS: 74176

== ENCOUNTER → 2023-10-27 | Outpatient (CLI) | payer OTHER, SELFPAY ==
--- OUTSIDE RECORDS SUMMARY | 2023-10-27 13:16 | XMS RPT_ITS | CCD ---
Author Name Unknown Address [address] [place] [address] Organization [facility] Care Team Providers Care Training And Development Manager Name Role Phone Byron Sanders DO Primary Care Provider [phone] BYRON SANDERS Attending Unavailable BYRON SANDERS Primary Care Unavailable BYRON SANDERS Attending Unavailable BYRON SANDERS Primary Care Unavailable Allergies Allergy Classification Reported Allergen(s) Allergy Type Date of Onset Reaction(s) Facility (5 sources) Clarithromycin Propensity to adverse reactions 5 [facility] Medications Current Medications Medication Drug Class(es) Dates Sig (Normalized) Sig (Original) [id number] 200 actuat albuterol 0.09 mg/actuat metered dose inhaler (5 sources) beta2-Adrenergic Agonist Start: 09-07-2022 End: 09-07-2023 take 2 puff(s) by inhalation every four hours as needed for wheezing albuterol (ProAir HFA) 108 (90 Base) MCG/ACT inhaler Inhale 2 puffs every 4 hours as needed for wheezing or shortness of breath. 8.5 g 5 09/07/2022 Active busPIRone hydrochloride 5 mg oral tablet (1 source) Start: 10-17-2023 End: 12-16-2023 take 1 tablet by mouth twice daily busPIRone (Buspar) 5 MG tablet Take 1 tablet (5 mg) by mouth 2 times daily. 60 tablet 1 10/17/2023 12/16/2023 Active cholecalciferol 0.025 mg oral tablet (5 sources) Vitamin D Start: 04-01-2021 take 1 tablet by mouth in the morning cholecalciferol (Vitamin D-3) 25 MCG (1000 UT) tablet Take 1 tablet by mouth in the morning. 0 04/01/2021 Active citalopram 20 mg oral tablet (7 sources) Serotonin Reuptake Inhibitor Start: 09-07-2022 End: 10-17-2023 take 1 tablet by mouth once daily citalopram (CeleXA) 20 MG tablet Take 1 tablet (20 mg) by mouth daily. 90 tablet 1 10/17/2023 Active 24 hr dilTIAZem hydrochloride 360 mg extended release oral capsule (7 sources) Calcium Channel Katt Start: 09-07-2022 End: 10-17-2023 take 1 capsule by mouth once daily dilTIAZem ER (Tiazac) 360 MG 24 hr capsule Take 1 capsule (360 mg) by mouth daily. 90 capsule 1 10/17/2023 Active ondansetron 4 mg oral tablet (3 sources) Serotonin-3 Receptor Antagonist Start: 03-13-2023 take 1 tablet by mouth every eight hours as needed for nausea and vomiting ondansetron (Zofran) 4 MG tablet Take 1 tablet (4 mg) by mouth every 8 hours as needed for nausea or vomiting for up to 12 doses. 20 tablet 0 03/13/2023 Active triamcinolone acetonide 0.001 mg/mg topical ointment (4 sources) Corticosteroid Start: 03-09-2023 End: 07-07-2023 triamcinolone (Kenalog) 0.1 % ointment Apply topically 2 times daily as needed for irritation or rash. 80 g 1 03/09/2023 07/07/2023 Active Problems Active Problems Problem Classification Problem Date Documented Date Episodic/Chronic Anxiety disorders (6 sources) Anxiety; Translations: [Other specified anxiety disorders] Onset: 12-27-2021 Chronic Disorders usually diagnosed in infancy, childhood, or adolescence (3 sources) Facial tic disorder; Translations: [Tic disorder, unspecified] Onset: 10-17-2023 10-17-2023 Chronic Essential hypertension (9 sources) Essential hypertension; Translations: [Essential (primary) hypertension] Onset: 08-31-2015 Chronic Heart valve disorders (9 sources) Non-rheumatic mitral regurgitation ; Translations: [Nonrheumatic mitral (valve) insufficiency] Onset: 08-31-2015 Chronic Mood disorders (6 sources) Recurrent major depressive episodes, mild ; Translations: [Major depressive disorder, recurrent, mild] Onset: 04-01-2021 07-21-2022 Chronic Other hereditary and degenerative nervous system conditions (1 source) Hereditary essential tremor; Translations: [Essential tremor] 10-17-2023 Chronic Other hereditary and degenerative nervous system conditions (2 sources) Essential tremor; Translations: [Essential tremor] Onset: 10-17-2023 Chronic Other nervous system disorders (5 sources) Smalls neuroma of bilateral feet; Translations: [Lesion of plantar nerve, bilateral lower limbs] Onset: 04-01-2021 07-21-2022 Chronic Other screening for suspected conditions (not mental disorders or infectious disease) (3 sources) Patient encounter status; Translations: [Encounter for screening for lipoid disorders] Onset: 10-17-2023 10-17-2023 Episodic Substance-related disorders (3 sources) Smoker; Translations: [Nicotine dependence, unspecified, uncomplicated] Onset: 10-17-2023 10-17-2023 Chronic Past or Other Problems Problem Classification Problem Date Documented Da te Episodic/Chronic Abdominal pain (3 sources) Abdominal tenderness of left lower quadrant; Translations: [Left lower quadrant abdominal tenderness] Onset: 03-09-2023 Episodic Allergic reactions (3 sources) Contact dermatitis due to Genus Toxicodendron; Translations: [Unspecified contact dermatitis due to plants, except food] Onset: 03-09-2023 Episodic Calculus of urinary tract (9 sources) Kidney stone; Translations: [Calculus of kidney] Onset: 12-29-2021 Episodic Mycoses (3 sources) Candidiasis of skin; Translations: [Candidiasis of skin and nail] Onset: 03-09-2023 Episodic Other connective tissue disease (5 sources) Bilateral plantar fasciitis; Translations: [Plantar fascial fibromatosis] Onset: 04-01-2021 07-21-2022 Episodic Other infections; including parasitic (5 sources) History of herpes zoster; Translations: [Personal history of other infectious and parasitic diseases] Onset: 11-30-2016 07-21-2022 Episodic Other infections; including parasitic (5 sources) Personal history of other infectious and parasitic diseases; Translations: [History of COVID-19] Onset: 12-27-2021 07-21-2022 Episodic Other lower respiratory disease (5 sources) Chronic cough; Translations: [Chronic cough] Onset: 12-09-2015 07-21-2022 Episodic Residual codes; unclassified (5 sources) Colonoscopy refused; Translations: [Procedure and treatment not carried out because of patient's decision for unspecified reasons] Onset: 05-01-2017 07-21-2022 Episodic Residual codes; unclassified (5 sources) Family history of diabetes mellitus; Translations: [Family history of diabetes mellitus] Onset: 08-31-2015 07-21-2022 Episodic Residual codes; unclassified (5 sources) Family history of coronary arteriosclerosis; Translations: [Family history of ischemic heart disease and other diseases of the circulatory system] Onset: 08-31-2015 07-21-2022 Episodic Results Test Name Value Interpretation Reference Range Facil ity Vital Signs Date Time Vital Sign Value Performing Clinician Faci lity 10-17-2023 15:52-0500 Body height 157.5 cm Byron Sanders DO Work Phone: [employer] 10-17-2023 15:52-0500 Body mass index (BMI) [Ratio] 30.36 kg/m2 Byron Sanders DO Work Phone: [facility] 10-17-2023 15:52-0500 Body temperature 97.2 [degF] Byron Sanders DO Work Phone: [facility] 10-17-2023 15:52-0500 Body weight 75.3 kg Byron Sanders DO Work Phone: [facility] 10-17-2023 15:52-0500 Diastolic blood pressure 70 mm[Hg] Byron Sanders DO Work Phone: [facility] 10-17-2023 15:52-0500 Heart rate 88 /min Byron Sanders DO Work Phone: [facility] 10-17-2023 15:52-0500 SaO2% (BldA) [Mass fraction] 95 % Byron Sanders DO Work Phone: [facility] 10-17-2023 15:52-0500 Systolic blood pressure 148 mm[Hg] Byron Sanders DO Work Phone: [facility] 03-09-2023 10:17-0400 Body height 157.5 cm Byron Sanders DO Work Phone: [facility] 03-09-2023 10:17-0400 Body mass index (BMI) [Ratio] 32.52 kg/m2 Byron Sanders DO Work Phone: [facility] 03-09-2023 10:17-0400 Body temperature 97.11 [degF] Byron Sanders DO Work Phone: [employer] 03-09-2023 10:17-0400 Body weight 80.65 kg Byron Sanders DO Work Phone: [facility] 03-09-2023 10:17-0400 Diastolic blood pressure 75 mm[Hg] [facility] 03-09-2023 10:17-0400 Heart rate 66 /min Byron [facility] DO [facility] 03-09-2023 10:17-0400 SaO2% (BldA) [Mass fraction] 96 % Byron Sanders DO Work Phone: [facility] 03-09-2023 10:17-0400 Systolic blood pressure 134 mm[Hg] Byron Sanders DO Work Phone: [facility] Encounters Encounter Date Encounter Type Care Provider Facility Start: 10-17-2023 End: 10-17-[address] [facility] Start: 10-17-2023 End: 10-17-2023 Office outpatient visit 25 minutes Byron Sanders DO Work Phone: [facility] Procedures Date Procedure Procedure Detail Performing Clinician Start: 03-09-2023 Urnls dip stick/tabl et rgnt non-auto w/o micrscp Byron Sanders DO Work Phone: Plan of Treatment Date Care Activity Detail Author Start: 10-17-2023 End: 10-17-2024 CBC W Auto Differential panel - Blood CBC auto differential Lab Routine Facial tic Expected: 10/17/2023 (Approximate), Expires: 10/17/[address] [facility] Work Phone: Immunizations Immunization Date Immunization Notes Care Provider Gini Lara30-2022 Pneumococcal Conjuga te PCV20, Pf (Prevnar 20) Byron Tomym DO Work Phone: [facility] 07-22-2013 pneumococcal polysac charide vaccine, 23 valent Byron Sanders DO Work Phone: [facility] Payers Date Payer Category Payer Unknown [employer] [id number] 2019-Present [address] [place] [address] Commercial [id number] 2019 Unknown [id number] Social History Date Type Detail Facility Start: 09-07-2022 Tobacco smoking status IDIS Ex-smoke r [facility] End: 05-15-1995 History of tobacco use Current smoker [facility] End: 05-15-1995 History of tobacco use Cigarette Smoker [facility] Start: 09-07-2022 Tobacco use and exposure Smokeless t obacco non-user [facility] Start: 03-09-2023 End: 10-17-2023 Alcohol intake Ex-drinker (finding) [facility] Start: 11-23-2022 End: 03-09-2023 Alcohol intake [facility] Start: 1955 Sex Assigned At Not on file [facility] Start: 02-27-2023 End: 03-09-2023 Exposure to SARS-CoV-2 (event) Not sure [facility] Start: 11-23-2022 End: 03-09-2023 Tobacco use panel [facility] Start: 1955 Sex Assigned At Female [facility] Start: 10-17-2023 Gender identity Identifies as female gender (finding) [facility] Start: 10-17-2023 Sexual orientation Heterosexual (fin ding) [facility] Clinical Notes 03-09-2023 to 10-17-2023 Byron Sanders DO - 10/17/2023 4:00 PM ESTTelephone Encounter - Mady Styles LPN - 04/18/2023 4:45 PM EDTTelephone Encounter - Mady Styles LPN - 04/18/2023 4:45 PM EDTPatient Instructions Note Date & Type Note Facility 10-17-2023 History of Presen t illness Narrative Images from the original note were not included. [facility] [address] [facility] [id number] Visit type: Established Patient Reason for Visit: Follow-up (6 month med check) Assessment / Plan: Ida was seen today for follow-up. Diagnoses and all orders for this visit: Facial tic (Primary) Comments: Recurrent, possible stress mediated. Neurology consultation Orders: - CBC auto differential; Future - Comprehensive metabolic panel; Future - TSH; Future - T4; Future - T3; Future - Vitamin B12; Future - CBC auto differential - Comprehensive metabolic panel - TSH - T4 - T3 - Vitamin B12 Benign head tremor Comments: Recurrent, await neurology eval Essential hypertension Comments: Stable blood pressure readings at home, continue diltiazem Nonrheumatic mitral valve regurgitation Lipid screening - Lipid panel; Future - Lipid panel Smoker Comments: Recurrent, encourage cessation Mild episode of recurrent major depressive disorder (HCC) Comments: Stable, continue Celexa and add BuSpar Other orders - citalopram (CeleXA) 20 MG tablet; Take 1 tablet (20 mg) by mouth daily. - dilTIAZem ER (Tiazac) 360 MG 24 hr capsule; Take 1 capsule (360 mg) by mouth daily. - busPIRone (Buspar) 5 MG tablet; Take 1 tablet (5 mg) by mouth 2 times daily. 35 Minutes spent on reviewing pertinent history, patient interview, physical exam, discussion of diagnosis and treatment and work-up options. Subjective: Patient ID: Ida Haddad is a 68 y.o. female. HPI hypertensive patient presents for checkup would like to discuss a few issues. Mostly she is disappointed felt that she began smoking. Ongoing stress at times at home. Most importantly she would like to follow-up on a 2-year history of a sense that she has uncontrollable facial and mouth twitching. This is progressed and she feels it now accompanied by a head tremor. She is terribly worried about developing Parkinson's disease. Overall feeling well. No cardiac or pulmonary concerns. The stress has made her begin smoking again. She denies peculiar headaches, diplopia, scotomas, or unilateral numbness of the face arm or legs. No difficulty with balance. Review of Systems overall she is felt well. No recent earache sore throat or cough. No chest pain or palpitations. No heartburn or dysphagia. No loss of appetite but has lost some weight. No abdominal pain. Bowels are regular. No melena or blood. She again defers breast exam mammogram and colon cancer screening. Some financial stress but they are coping. She is enjoying her correction. Close to her children and grandkids. Allergies Allergen Reactions Clarithromycin Other reaction(s): Other (See Comments) Dry mouth Current Outpatient Medications on File Prior to Visit Medication Sig Dispense Refill albuterol (ProAir HFA) 108 (90 Base) MCG/ACT inhaler Inhale 2 puffs every 4 hours as needed for wheezing or shortness of breath. 8.5 g 5 cholecalciferol (Vitamin D-3) 25 MCG (1000 UT) tablet Take 1 tablet by mouth in the morning. ondansetron (Zofran) 4 MG tablet Take 1 tablet (4 mg) by mouth every 8 hours as needed for nausea or vomiting for up to 12 doses. 20 tablet 0 [DISCONTINUED] citalopram (CeleXA) 20 MG tablet Take 1 tablet (20 mg) by mouth daily. 90 tablet 1 [DISCONTINUED] dilTIAZem ER (Tiazac) 360 MG 24 hr capsule Take 1 capsule (360 mg) by mouth daily. 90 capsule 1 No current facility-administered medications on file prior to visit. Patient Active Problem List Diagnosis History of shingles History of COVID-19 Left renal stone Situational anxiety Colonoscopy refused Chronic cough Mild episode of recurrent major depressive disorder (HCC) Smalls's neuroma of both feet Plantar fasciitis, bilateral Mitral regurgitation Essential hypertension Family history of diabetes mellitus Family history of coronary artery disease Social History Tobacco Use Smoking status: Former Packs/day: 0 Types: Cigarettes Quit date: 05/15/1995 Years since quittin.4 Smokeless tobacco: Never Substance Use Topics Alcohol use: Not Currently Alcohol/week: 0.0 standard drinks of alcohol Past Surgical History: Procedure Laterality Date CERVICAL DISC SURGERY 1998 C 6-7 HNP RECTOCELE REPAIR 06/2019 Brenda Williamson TOTAL ABDOMINAL HYSTERECTOMY 2004 Family History Problem Relation Name Age of Onset Arthritis Mother Alivia lumbar disc ds Heart disease Mother Alivia 60 [place] with stents--alive at age 85 High Blood Pressure Mother Alivia Heart disease Father Reggie Wagoner CABG Anemia Father Reggie Wagoner Myelodysplasia COPD Father Reggie Wagoner age 81 , sepsis Diabetes Sister zane jc 50 PAD and amputation, CAD, 09/23 age 61 No Known Problems Sister Jennifer Alcohol abuse Sister Gabe Hypertension Sister Gabe Diabetes Sister Gabe Alcohol abuse Brother Blanka Depression Brother Blanka Parkinsonism Mother's Sister Parkinsonism Mother's Brother Objective: BP (!) 148/70 Pulse 88 Temp 36.2 C (97.2 F) (Temporal) Ht 5' 2 (1.575 m) Wt 166 lb (75.3 kg) SpO2 95% BMI 30.36 kg/m Physical Exam Very pleasant alert and cooperative. Gets tearful about discussion of neurologic symptoms. Certainly no acute distress. Mild head tremor and grimacing was noted. Minimal findings. Pupils equal. Extraocular muscles are intact. No nystagmus. No ptosis. No cranial nerve loss. Rapid alternating movements are normal. Toes downgoing and no clonus. No Babinski. Gait is normal. All cerebellar test are normal. She has no extremity rigidity. Strength and sensory exam normal No neck masses JVD adenopathy or thyroid lesions. No carotid bruits. Normal eardrums and oropharynx. Reflexes normal. Heart is regular without gallops murmurs or ectopy. Lungs are diminished but clear of rales wheezes or egophony. Abdomen obese nontender without pain hepatosplenomegaly masses bruits or ascites. Femoral pedal pulses well. No edema. Blood pressure slightly elevated but she says it is excellent at home. documented in this encounter [facility] 04-18-2023 Telephone encounter Note Talked to patient and relayed message and she verbalized understanding. Will contact Dr. Sony Butcher tomorrow when their office is open. [facility] 04-18-2023 Miscellaneous Notes Talked to patient and relayed message and she verbalized understanding. Will contact Dr. Sony Butcher tomorrow when their office is open. Name of caller: Ida Haddad Contact phone number: [phone] Relationship to Patient: patient Provider: Dr Byron Sanders Practice: [facility] Chief Complaint/Reason for Call: Pt called regarding results from urology stating fluid around the heart. Pt stated that she is very concerned with results. (See TE dated 04-18) Please advise as soon as possible. Best time of day caller can be reached: any Patient advised that office/PCP has 24-48 business hours to return their call: No Name of caller: Ida Contact phone number: [phone] Relationship to Patient: patient Provider: Dr. Sanders Practice: [facility] Chief Complaint/Reason for Call: Pt states she was informed to follow up with her PCP to discuss results she was given from urology regarding fluid around her heart. Please advise. Best time of day caller can be reached: any Patient advised that office/PCP has 24-48 business hours to return their call: N/A documented in this encounter [facility] 04-18-2023 Telephone encounter Note Name of caller: Ida Haddad Contact phone number: [phone] Relationship to Patient: patient Provider: Dr Byron Sanders Practice: [facility] Chief Complaint/Reason for Call: Pt called regarding results from urology stating fluid around the heart. Pt stated that she is very concerned with results. (See TE dated 04-18) Please advise as soon as possible. Best time of day caller can be reached: any Patient advised that office/PCP has 24-48 business hours to return their call: No [facility] 04-17-2023 Telephone encounter Note Name of caller: Ida Contact phone number: [phone] Relationship to Patient: patient Provider: Dr. Sanders Practice: [facility] Chief Complaint/Reason for Call: Pt states she was informed to follow up with her PCP to discuss results she was given from urology regarding fluid around her heart. Please advise. Best time of day caller can be reached: any Patient advised that office/PCP has 24-48 business hours to return their call: N/A [facility] 03-09-2023 Note Referral pended for dx and doctor's signature [facility] 03-09-2023 Telephone encounter Note Referral pended for dx and doctor's signature [facility] 03-09-2023 Miscellaneous Notes Referral pended for dx and doctor's signature documented in this encounter [facility] 03-09-2023 History of Presen t illness Narrative Images from the original note were not included. [facility] [address] [facility] [id number] Visit type: Established Patient Reason for Visit: Follow-up (6 month med check) Assessment / Plan: Ida was seen today for follow-up. Diagnoses and all orders for this visit: Left renal stone (Primary) Comments: Recurrent, urology referral. Possible CT, ultrasound and/or cystoscope Orders: - Cancel: Complete Urinalysis; Future - Basic metabolic panel; Future - CBC auto differential; Future - Basic metabolic panel - CBC auto differential - POCT urinalysis dipstick manually resulted Nonrheumatic mitral valve regurgitation Essential hypertension Comments: Stable, continue diltiazem Left lower quadrant abdominal tenderness without rebound tenderness Rhus dermatitis Comments: acute, Kenalog ointment twice daily Candidal dermatitis Comments: Mild, OTC Lotrisone twice daily Situational anxiety Comments: Stable, continue Celexa Other orders - citalopram (CeleXA) 20 MG tablet; Take 1 tablet (20 mg) by mouth daily. - dilTIAZem ER (Tiazac) 360 MG 24 hr capsule; Take 1 capsule (360 mg) by mouth daily. - triamcinolone (Kenalog) 0.1 % ointment; Apply topically 2 times daily as needed for irritation or rash. Subjective: Patient ID: Ida Haddad is a 67 y.o. female. HPI hypertension and anxiety management. Overall feels well on those meds. Of note did retire. Happy to have her daughter moved back home to [place]. Meds have been effective. Having recurrent odd feeling in her left lower abdomen. Feels she never quite passed a kidney stone that she had last year. Question if hematuria. No flank pain fever or emesis. History of ureteral stone a year ago. No underlying covered a stone. Review of Systems no cardiac or pulmonary concerns. No chest pain and rare use of albuterol. History of mildly abnormal PFTs 7 years ago. No chronic cough or wheezing. Hesitant to take Proventil. No bowel changes. She has deferred colonoscopy. No constipation diarrhea melena or blood. No postmenopausal vaginal bleeding. Allergies Allergen Reactions Clarithromycin Other reaction(s): Other (See Comments) Dry mouth Current Outpatient Medications on File Prior to Visit Medication Sig Dispense Refill albuterol (ProAir HFA) 108 (90 Base) MCG/ACT inhaler Inhale 2 puffs every 4 hours as needed for wheezing or shortness of breath. 8.5 g 5 cholecalciferol (Vitamin D-3) 25 MCG (1000 UT) tablet Take 1 tablet by mouth in the morning. [DISCONTINUED] citalopram (CeleXA) 20 MG tablet Take 1 tablet (20 mg) by mouth daily. 90 tablet 1 [DISCONTINUED] dilTIAZem ER (Tiazac) 360 MG 24 hr capsule Take 1 capsule (360 mg) by mouth daily. 90 capsule 1 No current facility-administered medications on file prior to visit. Patient Active Problem List Diagnosis History of shingles History of COVID-19 Left renal stone Situational anxiety Colonoscopy refused Chronic cough Mild episode of recurrent major depressive disorder (HCC) Smalls's neuroma of both feet Plantar fasciitis, bilateral Mitral regurgitation Essential hypertension Family history of diabetes mellitus Family history of coronary artery disease Social History Tobacco Use Smoking status: Former Packs/day: 0.00 Types: Cigarettes Quit date: 05/15/1995 Years since quittin.8 Smokeless tobacco: Never Substance Use Topics Alcohol use: Not Currently Alcohol/week: 0.0 standard drinks Past Surgical History: Procedure Laterality Date CERVICAL DISC SURGERY 1998 C 6-7 HNP RECTOCELE REPAIR 06/2019 Dr. Quinones, Brenda TOTAL ABDOMINAL HYSTERECTOMY 2004 Family History Problem Relation Name Age of Onset Arthritis Mother Alivia lumbar disc ds Heart disease Mother Alivia 60 [place] with stents--alive at age 85 High Blood Pressure Mother Alivia Heart disease Father Reggie Wagoner CABG Anemia Father Reggie Wagoner Myelodysplasia COPD Father Reggie Wagoner age 81 , sepsis Diabetes Sister zane jc 50 PAD and amputation, CAD, 09/23 age 61 No Known Problems Sister Jennifer Alcohol abuse Sister Gabe Hypertension Sister Gabe Diabetes Sister Gabe Alcohol abuse Brother Blanka Depression Brother Blanka Objective: BP 134/75 Pulse 66 Temp 36.2 C (97.1 F) (Temporal) Ht 5' 2 (1.575 m) Wt 177 lb 12.8 oz (80.6 kg) SpO2 96% BMI 32.52 kg/m Physical Exam pleasant cooperative. Well-hydrated. No JVD adenopathy carotid bruits. Normal oropharynx. She was concerned about having some swollen lymph nodes but they have resolved. No skin changes. Heart is regular without murmur change. No ectopy. Lungs are clear throughout without rales wheezes or egophony. Abdomen soft obese nontender without pain hepatosplenomegaly masses bruits. No hepatosplenomegaly or masses. Bowel sounds are normal. Femoral pulses are good no CVA tenderness. Extremities are pink without edema. Physiologic reflexes. Pulses are well documented in this encounter [facility] [employer] 03-09-2023 Instructions Byron Sanders DO - 03/09/2023 10:30 AM EDT For skin lesions under breasts by [id number] Lotrisone cream and apply twice a day for 1 week and then as needed documented in this encounter [facility] Diagnosis Left renal stone- Primary [facility]* Diagnosis Facial tic- Primary Benign head tremor Essential hypertension Unspecified essential hypertension Nonrheumatic mitral valve regurgitation Lipid screening Screening for lipoid disorders Smoker Tobacco use disorder Mild episode of recurrent major depressive disorder (HCC) [facility] Consultation (Routine) - Pending Review Specialty Diagnoses / Procedures Referred By Florence restrepo Referred To Contact Urology Diagnoses Left renal stone Procedures IN OFFICE/OUTPATIENT NEW HIGH MDM 60-74 MINUTES Byron Sanders DO [address] [place] [address] Filemon Campos [address] [place] [id number] Referral ID Status Reason Start Date Expiration Date Visits Requested Visits Authorized [id number] Pending Review Specialty Services Required 03/09/2023 03/08/2024 1 1 [facility] Summary Purpose Family History No Family History Records Found Advance Directives No Advanced Directives Records Found Additional Source Comments Reason for Visit (unrecogniz ed section and content) Reason Onset Date Comments Referral 03/09/2023 Dr Campos Reason Onset Date Comments Other 04/17/2023 Message 04/17/2023 Care Teams (unrecognized sec tion and content) Training And Development Manager Relationship Specialty Start Date End Date Byron Sanders DO [address] [place] [address] PCP - General 05/15/15 Training And Development Manager Relationship Specialty Start Date End Date Byron Sanders DO [address], [place] [id number] PCP - General 05/15/15 Training And Development Manager Relationship Specialty Start Date End Date Byron Sanders DO [address] [place] [address] PCP - General 05/15/15 Training And Development Manager Relationship Specialty Start Date End Date Byron Sanders DO [address] [facility] [address] [place] [phone] PCP - General 05/15/15 INFORMATION SOURCE (unrecogn ized section and content) FOR RECORDS PERTAINING TO PATIENTS WHO ARE OR HAVE BEEN ENROLLED IN A CHEMICAL DEPENDENCY/SUBSTANCEABUSE PROGRAM, SOME INFORMATION MAY BE OMITTED. This clinical summary was aggregated from multiple sources. Caution should be exercised in using it in the provision of clinical care. This summary normalizes information from multiple sources, and as a consequence, information in this document may materially change the coding, format and clinical context of patient data. In addition, data may be omitted in some cases. CLINICAL DECISIONS SHOULD BE BASED ON THE PRIMARY CLINICAL RECORDS. [facility] [employer] [facility]. provides no warranty or guarantee of the accuracy or completeness of information in this document.
[2023-10-27 14:26] LABS: Absolute Lymphocyte Count 1.68 X10^3/uL (0.83-4.51); Absolute Neutrophil Count 3.7 X10^3/uL (2.0-7.7); Basophil# 0.07 X10^3/uL; Basophil% 1.1 % (0-1); Eosinophil# 0.32 X10^3/uL; Eosinophils% 5.1 % (0-5); Hemoglobin 14.4 g/dL (12.0-15.0); Lymphocyte # 1.68 X10^3/ul (0.83-4.51); Lymphocyte % 26.6 % (19-41); Mean Corpuscular Hgb 30.7 pg (27.0-32.0); Mean Corpuscular Volume 95.9 fL (81-99); Mean Platelet Vol. 10.8 fl (6.2-12.0); Monocyte# 0.57 X10^3/uL; NRBC Flagged by Analyzer 0 % (0-5); Neutrophil # 3.66 X10^3/uL (2.7-7.7); Platelet Count 363 K/mm3 (150-450); RBC Distribution Width CV 11.6 % (11.6-14.6); RBC Distribution Width SD 40.6 fl (35.1-43.9); Red Blood Count 4.69 M/mm3 (4.2-5.4); White Blood Count 6.3 K/mm3 (4.4-11.0)
[2023-10-27 15:04] LABS: T3 Total - Triiodothyronine 1.02 ng/mL (0.6-1.81); Vitamin B12 224 pg/mL (211-911)
[2023-10-27 15:11] LABS: ALB/GLOB Ratio 1.1 RATIO (0.9-2.4); AST(SGOT) 13 U/L (15-37); Alanine Aminotransfer ALT/SGPT 19 U/L (13-56); Albumin, Serum 3.8 g/dL (3.2-5.0); Alkaline Phosphatase 116 U/L (45-117); Anion Gap 4 (5-15); BUN 10 mg/dL (7-18); BUN/Creat Ratio 14.4 RATIO (10-20); Calcium,Total 9.3 mg/dL (8.5-10.1); Chloride 107 mmol/L (98-107); Cholesterol 205 mg/dL (200); EST Glomerular Filtration Rate 90 mL/min (>60); Est Glom Filt Rate - Afr Amer 108 mL/min (>60); Globulin 3.5 g/dL (2.2-4.2); Glucose 89 mg/dL (74-106); High Density Lipoprotein 61 mg/dL; Potassium 4.2 mmol/L (3.5-5.1); Protein, Total 7.3 g/dL (6.4-8.2); Sodium Level 141 mmol/L (136-145); T4 Total, Thyroxin 7.1 ug/dL (4.8-13.9); Thyroid Stim Hormone (TSH) 1.19 uIU/mL (0.358-3.74); Triglycerides 129 mg/dL; Very Low Density Lipoprotein 26 mg/dL (5-40)
== END | disposition home or self-care (01) ==
LOC: LAB 12:55
PROVIDERS: PCP Family Medicine; Referring Provider Family Medicine; Visit Provider Family Medicine
DX: F95.9 Tic disorder, unspecified (principal); Z13.220 Encounter for screening for lipoid disorders
CPT/HCPCS: 36415; 80053; 80061; 82607; 84436; 84443; 84480; 85025

== ENCOUNTER 2024-05-14 13:12 | Emergency (ER) | payer OTHER, SELFPAY ==
[2024-05-14 13:15] VITALS: BP 154/87; PULSE 101; RESP 18; TEMP 36.5; O2SAT 95; BMI 27.8
--- NOTE | 2024-05-14 13:45 | EKG12_ITS ---
Test Reason : CP Blood Pressure : / mmHG Vent. Rate : 080 BPM Atrial Rate : 080 BPM P-R Int : 164 ms QRS Dur : 096 ms QT Int : 426 ms P-R-T Axes : 063 014 044 degrees QTc Int : 491 ms Normal sinus rhythm Prolonged QT Abnormal ECG Confirmed by James Sanchez ([id number]), manuscript editor KOMAL CAMP ([id number]) on 05/16/2024 9:22:21 AM Referred By: Confirmed By:James Sanchez
--- NOTE | 2024-05-14 13:46 | EDS_ITS ---
HPI History of Present Illness Chief Complaint: Chest Pain Informant: patient Narrative Narrative: Presents private vehicle waxing waning chest heaviness since yesterday 1 PM. She states was doing light activity. No radicular symptoms no dyspnea no nausea no diaphoresis. Symptoms worsened this morning however subsided currently. No cardiac stent or coronary disease history. States mitral valve issues. Hypertension hyperlipidemia history. Tobacco history. Denies family history of MIs at young age. Denies diabetes. Denies recent travel or surgeries or immobilizations. No history of PE or DVT. Stress test years ago no history of heart caths. Denies cough or upper respiratory symptoms. Prior Similar Symptoms: No CVD Risk Factors: Positive for Hypertension, Hypercholesterolemia and Smoking; Negative for Diabetes or Family History 1' </=55 PE Risk Factors: Negative for Recent Travel/Surgery, Recent Immobilization, Prior DVT or PE or OCP + Smoking + >/=35 PFSH PFSH Home Medications ?Medication ?Instructions ?Recorded ?Last Taken ?Type citalopram 10 mg tablet 1 tab PO DAILY 12/31/17 Unknown History diltiazem HCl 240 mg 240 mg PO BID 12/31/17 06/24/19 10:00 History capsule,extended release 24 hr, 240 MG controlled docusate sodium 100 mg capsule 100 mg PO BID PRN PRN Constipation 06/24/19 Unknown Rx #60 caps ondansetron 4 mg disintegrating 4 mg PO Q8H PRN nausea and 12/29/21 Unknown Rx tablet vomiting #10 tabs oxycodone-acetaminophen 5 mg-325 1 tab PO Q6H PRN pain 3 days #12 12/29/21 Unknown Rx mg tablet (Percocet) tabs promethazine 25 mg rectal 25 mg RECTAL Q6H PRN PRN Nausea ##6 12/29/21 Unknown Rx suppository (Promethegan) tamsulosin 0.4 mg capsule (Flomax) 0.4 mg PO DAILY #7 caps 12/29/21 Unknown Rx Allergy/AdvReac Type Severity Reaction Status Date / Time No Known Allergies Allergy Verified 05/14/24 13:14 Social History Smoking Status: Former smoker ROS ROS ED Constitutional Constitutional ED: Denies chills, fever(s) or sweats Eyes Eyes: Denies change in vision ENT ENT ED: Denies dysphagia or sore throat Cardiovascular Cardiovascular: Reports chest pain; Denies leg edema, palpitations or racing heartbeat Respiratory/Chest Respiratory/Chest: Denies cough, dyspnea or dyspnea on exertion Gastrointestinal Gastrointestinal: Denies abdominal pain, diarrhea, nausea or vomiting Genitourinary Genitourinary ED: Denies dysuria, hematuria or urinary frequency Musculoskeletal Musculoskeletal: Denies back pain, extremity pain or neck pain Integumentary Denies rash or wounds Neurologic Neurologic: Denies headache(s), paresthesias or weakness EXAM Physical Exam Const Vital Signs: 05/14/24 13:15 05/14/24 13:40 05/14/24 14:09 Temperature 97.7 F L Temperature Source Temporal Pulse Rate 101 H Respiratory Rate 18 Respiratory Effort Normal Non-Labored Blood Pressure 154/87 H Blood Pressure Mean 109 Pulse Ox 95 Oxygen Delivery Method Room Air Room Air 05/14/24 15:14 05/14/24 15:17 Temperature 98.1 F Temperature Source Pulse Rate 62 61 Respiratory Rate 25 H 22 H Respiratory Effort Blood Pressure 169/69 H 169/96 H Blood Pressure Mean 102 120 Pulse Ox 96 95 Oxygen Delivery Method Room Air Positive well nourished and well developed General Appearance ED: well developed and NAD HEENT Reports moist mucous membranes normocephalic and atraumatic Eyes EOMs intact bilaterally and conjunctivae normal General Eye ED: Yes normal appearance of both eyes Neck no lymphadenopathy and supple General: Negative for tenderness Chest Wall Chest: Negative for tenderness Resp normal respiratory effort and normal air movement Resp Narrative: Symmetric breath sounds Effort and Inspection: symmetric chest movement; Negative for respiratory distress Cardio regular rate, regular rhythm and no murmurs Peripheral Pulses: pulses 2+ throughout GI normal to inspection, nondistended, normoactive bowel sounds and non-tender Palpation: Negative for guarding or rebound tenderness present Back/Spine no CVA tenderness and no thoracic nor lumbar tenderness Extremity normal to inspection General Extremety ED: Negative for edema or tenderness General Extremity: Negative for edema Neuro oriented x3 and no sensory deficits noted Sensorium / Orientation: awake and alert Skin no rashes or lesions noted and no wounds Heart Score History: Slightly/Non-Suspicious ECG: Normal Age: >/= 65 years Risk Factors: >/= 3 Risk Factors or History of CAD Troponin: </= Normal Limit Score: 4 MDM MDM MDM Narrative Medical decision making narrative: Interventions / MDM: Differential diagnosis: Atypical chest pain. Diagnosis considered but do not suspect: Pneumothorax however normal breath sounds and normal image studies. ACS however EKG and cardiac enzyme negative. Pulmonary embolism however no dyspnea or hypoxia. My EKG interpretation: Sinus rate of 80, no ST or T wave changes. Imaging independently reviewed and interpreted by myself: 2 view chest x-ray: No acute process also read by radiology. Consults External documents reviewed: N/A Test considered but not ordered:N/A ED course: Patient approximately chest pain pressure nearly 24 hours currently subsided. Nontoxic. EKG ordered cardiac workup. Aspirin ordered. Cardiac workup negative. Troponin negative. With symptoms greater than 24 hours ago and negative cardiac enzymes, 1 troponin adequate to rule out ACS at this time. Patient remains symptom-free. Discussed outpatient follow-up with her primary care team for further workup. Discussed tricked return precautions. All questions were answered. Re-evaluation: stable Disposition discussed with patient/family/significant other: Patient and significant other Case discussed with consulting clinician: N/A This note was generated with [employer] dictation software. It may contain incorrect words, spelling, and punctuation that were not noted in checking the note before signing. Lab Data Attestation: I reviewed the patient's lab results. Labs: Laboratory Results - last 24 hr 05/14/24 14:07 WBC 8.1 RBC 5.05 Hgb 15.8 H Hct 47.0 MCV 93.1 MCH 31.3 MCHC 33.6 RDW Std Deviation 38.9 RDW Coeff of Martha 11.4 L Plt Count 359 MPV 10.1 Immature Gran % (Auto) 0.500 Neut % (Auto) 80.1 H Lymph % (Auto) 12.7 L [place] % (Auto) 5.8 Eos % (Auto) 0.4 Baso % (Auto) 0.5 Absolute Neuts (auto) 6.5 Absolute Lymphs (auto) 1.03 Nucleated RBC % 0 Sodium 141 Potassium 3.7 Chloride 109 H Carbon Dioxide 24.0 Anion Gap 8 BUN 9 Creatinine 0.74 Estim Creat Clear Calc 62.96 Est GFR (MDRD) Af Amer 101 Est GFR (MDRD) Non-Af 84 BUN/Creatinine Ratio 12.2 Glucose 113 H Calcium 9.3 Troponin I High Sens 3 Radiography Diagnostic Testing: Clinical Impression(s) from Imaging Studies Chest X-Ray 05/14/24 14:12 IMPRESSION: Normal x-ray examination of the chest. Electronically Signed: Reese Melendez MD at 14:34 EDT , Discharge Plan Triage Chief Complaint: Chest Pain ED Provider: Aamir Blevins Dx/Rx/DC Orders Clinical Impression: Chest pain, History of hypertension Instructions: ED Chest Pain, Uncertain Cause Prescriptions: No Action diltiazem HCl 240 MG capsule,ext.rel 24h degradable 240 mg PO BID citalopram 10 MG tablet 1 tab PO DAILY Patient Comments: take 1 tablet by mouth once daily docusate sodium 100 MG capsule 100 mg PO BID PRN PRN (Reason: Constipation) Qty: 60 1RF promethazine [Promethegan] 25 MG suppository 25 mg RECTAL Q6H PRN PRN (Reason: Nausea) Qty: 6 0RF oxycodone-acetaminophen [Percocet] 5-325 mg tablet 1 tab PO Q6H PRN (Reason: pain) 3 Days Qty: 12 0RF ondansetron 4 mg tablet,disintegrating 4 mg PO Q8H PRN (Reason: nausea and vomiting) Qty: 10 0RF tamsulosin [Flomax] 0.4 mg capsule 0.4 mg PO DAILY Qty: 7 0RF Primary Care Provider: Byron Sanders Referrals: Byron Sanders DO [Primary Care Provider] - 3-5 Days Activity Restrictions/Additional Instructions: Your cardiac workup negative today. Follow-up with your doctor further testing outpatient. Your symptoms recur or worsens, return to the ED for reevaluation. Print Language: Macedonian Disposition Disposition: Home, Self Care Discharge Date/Time: 05/14/24 15:21
[2024-05-14] MEDS: Aspirin 81 MG TAB.CHEW 324 MG PO (13:49)
--- NOTE | 2024-05-14 14:12 | RAD_ITS ---
STUDY: X-RAY CHEST REASON FOR EXAM: Female, 68 years old. chest pain TECHNIQUE: Frontal and lateral views of the chest. COMPARISON: 11/17/2015. FINDINGS: The lungs are clear and expanded. There is no demonstrated pleural abnormality. Normal size heart. Normal mediastinum and vijaya. Normal visualized pulmonary arteries. Normal visualized aortic arch and descending thoracic aorta. Normal visualized thoracic spine. Normal visualized ribs, clavicles, and shoulders. There is no demonstrated abnormality of the visualized soft tissue structures of the upper abdomen. RAD/Chest PA and Lateral IMPRESSION: Normal x-ray examination of the chest. Electronically Signed: Reese Melendez MD at 14:34 EDT ,
[2024-05-14 14:16] LABS: Absolute Lymphocyte Count 1.03 X10^3/uL (0.83-4.51); Absolute Neutrophil Count 6.5 X10^3/uL (2.0-7.7); Basophil# 0.04 X10^3/uL; Basophil% 0.5 % (0-1); Eosinophil# 0.03 X10^3/uL; Eosinophils% 0.4 % (0-5); Hemoglobin 15.8 g/dL (12.0-15.0); Lymphocyte # 1.03 X10^3/ul (0.83-4.51); Lymphocyte % 12.7 % (19-41); Mean Corp Hgb Conc 33.6 g/dL (32-36); Mean Corpuscular Hgb 31.3 pg (27.0-32.0); Mean Corpuscular Volume 93.1 fL (81-99); Mean Platelet Vol. 10.1 fl (6.2-12.0); Monocyte# 0.47 X10^3/uL; Monocyte% 5.8 % (0-10); NRBC Flagged by Analyzer 0 % (0-5); Neutrophil % 80.1 % (47-70); Platelet Count 359 K/mm3 (150-450); RBC Distribution Width CV 11.4 % (11.6-14.6); RBC Distribution Width SD 38.9 fl (35.1-43.9); Red Blood Count 5.05 M/mm3 (4.2-5.4); White Blood Count 8.1 K/mm3 (4.4-11.0)
[2024-05-14 14:33] LABS: Anion Gap 8 (5-15); BUN 9 mg/dL (7-18); BUN/Creat Ratio 12.2 RATIO (10-20); Calcium,Total 9.3 mg/dL (8.5-10.1); Chloride 109 mmol/L (98-107); Creatinine, Serum 0.74 mg/dL (0.55-1.02); EST Glomerular Filtration Rate 84 mL/min (>60); Est Glom Filt Rate - Afr Amer 101 mL/min (>60); Estimated Creatinine Clearance 62.96 ml/min; Glucose 113 mg/dL (74-106); Potassium 3.7 mmol/L (3.5-5.1); Sodium Level 141 mmol/L (136-145); Troponin-I HS 3 pg/mL (3.0-54.0)
[2024-05-14 15:14] VITALS: BP 169/69; PULSE 62; RESP 25; O2SAT 96
[2024-05-14 15:17] VITALS: BP 169/96; PULSE 61; RESP 22; TEMP 36.7; O2SAT 95
== END 2024-05-14 15:21 | disposition home or self-care (01) ==
PROVIDERS: Emergency Provider Emergency Medicine; PCP Family Medicine; Visit Provider Emergency Medicine
DX: R07.89 Other chest pain (principal); I10 Essential (primary) hypertension; Z79.899 Other long term (current) drug therapy; Z87.891 Personal history of nicotine dependence
CPT/HCPCS: 71046; 80048; 84484; 85025; 93005; 99284; A4216

== ENCOUNTER 2024-07-09 16:42 | Emergency (ER) | payer OTHER, SELFPAY ==
[2024-07-09 16:43] VITALS: BP 138/67; PULSE 70; RESP 18; TEMP 36; O2SAT 94; BMI 27.8
[2024-07-09 18:42] VITALS: BP 159/71; PULSE 60; RESP 15; O2SAT 93
--- NOTE | 2024-07-09 19:26 | CT_ITS ---
STUDY: CT ABDOMEN AND PELVIS WITHOUT CONTRAST REASON FOR EXAM: Female, 68 years old. Kidney Stone RADIATION DOSAGE (If Supplied By Facility): CTDIvol = ( 8.49 ) mGy, DLP = ( 381.96 ) mGycm TECHNIQUE: Transaxial images were obtained from the dome of the diaphragm to the symphysis pubis without oral contrast, and without intravenous contrast. Sagittal and coronal images were reconstructed. Individualized dose optimization techniques were used for this CT. COMPARISON: None. FINDINGS: The visualized lung bases are unremarkable. Mild pericardial effusion. Normal liver. Normal gallbladder and extrahepatic biliary system. Normal spleen. Normal pancreas. Normal bilateral adrenal glands. Normal right kidney. Normal left kidney. Normal visualized stomach. Normal small intestine. Normal colon. The appendix is visualized and appears normal. Normal abdominal aorta. Normal inferior vena cava. Normal retroperitoneum. Normal urinary bladder. Normal abdominal wall. Normal osseous structures. CT/Abdomen/Pelvis without Cont IMPRESSION: No acute pathology of the abdomen and pelvis. Mild pericardial effusion. Electronically Signed: Messi Reid DO at 21:27 EDT Reading Location ID and State: [facility] / [place] Tel [phone], Service support ,
[2024-07-09] MEDS: Ketorolac 15 MG/ML Vial IV (19:35)
[2024-07-09] MEDS: 0.9% Normal Saline (1000mL) 1,000 ML 999 ML IV (19:35)
[2024-07-09] MEDS: Ondansetron 4 MG/2 ML Vial IV (19:35)
[2024-07-09 19:36] LABS: Mucous, Urine 0 SEEN /hpf (<or=2+); Red Blood Cells-Urine 0 SEEN /hpf (0-5)
[2024-07-09 19:38] LABS: Color, Urine Yellow (Yellow); Glucose, Dipstick Normal (Normal); Leukocyte Esterase-Dipstick 100 /ul (Negative); Nitrite-Dipstick Negative (Negative); Occult Blood-Urine 25 /ul (Negative); Protein-Dipstick 30 mg/dl (Negative); Specific Gravity, Urine 1.025 (1.002-1.030); Urine Bilirubin Dipstick Negative (Negative); Urine Clarity Clear (Clear); Urine Urobilinogen Normal (Normal)
[2024-07-09 19:42] LABS: Absolute Lymphocyte Count 1.57 X10^3/uL (0.83-4.51); Absolute Neutrophil Count 9.8 X10^3/uL (2.0-7.7); Basophil# 0.07 X10^3/uL; Basophil% 0.6 % (0-1); Eosinophil# 0.13 X10^3/uL; Hematocrit 45.3 % (37-47); Hemoglobin 15.4 g/dL (12.0-15.0); Lymphocyte # 1.57 X10^3/ul (0.83-4.51); Lymphocyte % 12.4 % (19-41); Mean Corpuscular Hgb 31.4 pg (27.0-32.0); Mean Corpuscular Volume 92.4 fL (81-99); Monocyte# 1.09 X10^3/uL; Monocyte% 8.6 % (0-10); NRBC Flagged by Analyzer 0 % (0-5); Neutrophil # 9.79 X10^3/uL (2.7-7.7); Platelet Count 401 K/mm3 (150-450); RBC Distribution Width CV 11.3 % (11.6-14.6); RBC Distribution Width SD 38.5 fl (35.1-43.9); White Blood Count 12.7 K/mm3 (4.4-11.0)
[2024-07-09 19:45] LABS: Ketone-Dipstick 150 mg/dl (Negative)
[2024-07-09 19:53] LABS: Bacteria RARE /hpf (None Seen); Hyaline Cast 0-5 SEEN /lpf (0-5); Squamous Epithelial Cells - UA 0-5 SEEN /hpf (5-10); Transitional Epithelial - Ur 0-5 SEEN /hpf (0-5)
[2024-07-09 19:54] LABS: White Blood Cells 5-10 SEEN /hpf (0-5)
[2024-07-09 19:55] LABS: Anion Gap 10 (5-15); BUN 12 mg/dL (7-18); BUN/Creat Ratio 15.9 RATIO (10-20); Calcium,Total 9.8 mg/dL (8.5-10.1); Chloride 103 mmol/L (98-107); Creatinine, Serum 0.76 mg/dL (0.55-1.02); EST Glomerular Filtration Rate 81 mL/min (>60); Est Glom Filt Rate - Afr Amer 98 mL/min (>60); Estimated Creatinine Clearance 62.94 ml/min; Glucose 138 mg/dL (74-106); Potassium 3.6 mmol/L (3.5-5.1); Sodium Level 137 mmol/L (136-145)
[2024-07-09 20:00] VITALS: BP 141/67; PULSE 69; RESP 18; O2SAT 94
--- NOTE | 2024-07-09 20:01 | ED.VIS.FEGU ---
HPI HPI - Female History of Present Illness Chief Complaint: Flank Pain Narrative Narrative: Chief complaint and HPI: Left flank pain. 68-year-old female with history of urolithiasis presents for evaluation of left flank pain. Onset of pain started 2 days ago. Pain worsened this evening. Patient states that she cannot get comfortable secondary to the pain. She states it feels like her previous kidney stone pain. She endorses some nausea and vomiting. Denies any fever, chills, URI symptoms, chest pain, shortness of breath, hematuria, dysuria, diarrhea/constipation. Review of systems: See HPI Medications: As listed on the chart Allergies: As listed on the chart PFSH: Per chart Vital signs: As listed on the chart. Reviewed. Physical exam: Gen: A&O x3, uncomfortable and moving around in the bed Head: Normocephalic, atraumatic Eyes: No sclera icterus, conjunctiva clear ENT: Moist mucous membranes Neck: Trachea midline, No JVD CV: RRR, no murmurs, no peripheral edema Resp: Lungs CTA BL, no w/r/c GI: Abd soft, non-distended, non-tender, no r/r/g : No CVA tenderness Musc: Full ROM, no deformity Skin: Warm, dry Neuro: Alert, oriented, grossly intact, sensation intact Psych: Cooperative, appropriate mood and affect [facility] Medical History (Updated 07/09/24 @ 21:[address] Tee Adler, ) COPD (chronic obstructive pulmonary disease) Brain tumor Kidney stones Home Medications ?Medication ?Instructions ?Recorded ?Last Taken ?Type citalopram 10 mg tablet 1 tab PO DAILY 12/31/17 Unknown History diltiazem HCl 240 mg 240 mg PO BID 12/31/17 06/24/19 10:00 History capsule,extended release 24 hr, 240 MG controlled melatonin 10 mg capsule 10 mg PO HS PRN insomnia 05/16/24 Unknown History propranolol 10 mg tablet 10 mg PO BID #60 tabs 05/16/24 Unknown Rx cephalexin 500 mg capsule 500 mg PO BID 7 days #14 caps 07/09/24 Unknown Rx ondansetron 4 mg disintegrating 4 mg PO Q8H PRN PRN Nausea #10 tabs 07/09/24 Unknown Rx tablet oxycodone-acetaminophen 5 mg-325 1 tab PO Q8H PRN pain 2 days #6 07/09/24 Unknown Rx mg tablet (Percocet) tabs Allergy/AdvReac Type Severity Reaction Status Date / Time No Known Allergies Allergy Verified 07/09/24 16:43 Social History Smoking Status: Current every day smoker tobacco type: cigarettes EXAM Physical Exam Const Vital Signs: 07/09/24 16:43 07/09/24 18:42 07/09/24 20:00 Temperature 96.8 F L Temperature Source Temporal Pulse Rate 70 60 69 Respiratory Rate 18 15 18 Blood Pressure 138/67 H 159/71 H 141/67 H Blood Pressure Mean 90 100 91 Pulse Ox 94 93 94 Oxygen Delivery Method Room Air Room Air 07/09/24 22:00 07/09/24 22:15 Temperature 98.5 F Temperature Source Pulse Rate 72 79 Respiratory Rate 18 18 Blood Pressure 148/65 H 134/70 H Blood Pressure Mean 92 91 Pulse Ox 93 93 Oxygen Delivery Method Room Air MDM MDM MDM Narrative Medical decision making narrative: 68-year-old female with history of urolithiasis presents for evaluation of left flank pain. Onset of symptoms 2 days ago. Patient states it feels similar to her previous kidney stone pain. Differential diagnosis includes but is not limited to urolithiasis, UTI, electrolyte abnormality. NS bolus, Toradol, Zofran ordered for symptoms. Laboratory workup ordered including CT abdomen pelvis without contrast. CBC with mild leukocytosis of 12.7. Hemoglobin is concentrated at 15.4 this is consistent with dehydration with nausea and vomiting. BMP unremarkable without NICO. UA positive for ketones which is consistent with dehydration. Urine is also positive for blood, leuk esterase, WBCs. Negative for nitrites and squamous epithelial. Blood in the urine is concerning for possible urolithiasis as well as UTI. Patient has rare bacteria however urine is concerning for UTI. Culture sent. CT abdomen pelvis shows no acute intra-abdominal pathology. Patient has a mild pericardial effusion. On reexamination, patient states her pain has improved. At this point in time no clear etiology for patient's pain however given her presentation as well as blood in the urine, suspect possibly passed urolithiasis versus UTI. She confirmed understanding. Will place her on Keflex for possible UTI as well as Zofran and Percocet for possible urolithiasis. Patient was educated to keep up on her fluids as her labs show dehydration. She confirmed understanding. Patient was made aware of her mild pericardial effusion and told to follow-up with her PCP. Patient states that this is a known and has required no further workup. Return precautions were explained. Patient stable to discharge home. Impression: 1. Left flank pain 2. Concern for UTI 3. Possible urolithiasis 4. Dehydration Lab Data Labs: Laboratory Results - last 24 hr 07/09/24 19:22 WBC 12.7 H RBC 4.90 Hgb 15.4 H Hct 45.3 MCV 92.4 MCH 31.4 MCHC 34.0 RDW Std Deviation 38.5 RDW Coeff of Martha 11.3 L Plt Count 401 MPV 10.0 Immature Gran % (Auto) 0.400 Neut % (Auto) 77.0 H Lymph % (Auto) 12.4 L [place] % (Auto) 8.6 Eos % (Auto) 1.0 Baso % (Auto) 0.6 Absolute Neuts (auto) 9.8 H Absolute Lymphs (auto) 1.57 Nucleated RBC % 0 Sodium 137 Potassium 3.6 Chloride 103 Carbon Dioxide 25.0 Anion Gap 10 BUN 12 Creatinine 0.76 Estim Creat Clear Calc 62.94 Est GFR (MDRD) Af Amer 98 Est GFR (MDRD) Non-Af 81 BUN/Creatinine Ratio 15.9 Glucose 138 H Calcium 9.8 Urine Color Yellow Urine Clarity Clear Urine pH 6.0 Ur Specific [place] 1.025 Urine Protein 30 H Urine Glucose (UA) Normal Urine Ketones 150 A* Urine Occult Blood 25 H Urine Nitrite Negative Urine Bilirubin Negative Urine Urobilinogen Normal Ur Leukocyte Esterase 100 H Urine RBC 0 SEEN Urine WBC 5-10 SEEN Ur Squamous Epith Cells 0-5 SEEN Ur Transition Epith Cell 0-5 SEEN Urine Bacteria RARE Hyaline Casts 0-5 SEEN Urine Mucus 0 SEEN Radiography Diagnostic Testing: Clinical Impression(s) from Imaging Studies Abdomen/Pelvis CT 07/09/24 19:26 IMPRESSION: No acute pathology of the abdomen and pelvis. Mild pericardial effusion. Electronically Signed: Messi Reid DO at 21:27 EDT Reading Location ID and State: [facility] / [place] Tel [phone], Service support , Discharge Plan Triage Chief Complaint: Flank Pain ED Provider: Tee Adler Dx/Rx/DC Orders Clinical Impression: UTI (urinary tract infection) Instructions: ED Flank Pain, Uncertain Cause Prescriptions: New cephalexin 500 mg capsule 500 mg PO BID 7 Days Qty: 14 0RF ondansetron 4 mg tablet,disintegrating 4 mg PO Q8H PRN PRN (Reason: Nausea) Qty: 10 0RF oxycodone-acetaminophen [Percocet] 5-325 mg tablet 1 tab PO Q8H PRN (Reason: pain) 2 Days Qty: 6 0RF No Action melatonin 10 mg capsule 10 mg PO HS PRN (Reason: insomnia ) propranolol 10 mg tablet 10 mg PO BID Qty: 60 5RF diltiazem HCl 240 MG capsule,ext.rel 24h degradable 240 mg PO BID citalopram 10 MG tablet 1 tab PO DAILY Patient Comments: take 1 tablet by mouth once daily Primary Care Provider: Byron Sanders Referrals: Byron Snaders DO [Primary Care Provider] - 3-5 Days Activity Restrictions/Additional Instructions: Follow-up with your primary care physician Print Language: Nepalese Disposition Disposition: Home, Self Care Discharge Date/Time: 07/09/24 22:19
[2024-07-09 22:00] VITALS: BP 148/65; PULSE 72; RESP 18; O2SAT 93
[2024-07-09 22:15] VITALS: BP 134/70; PULSE 79; RESP 18; TEMP 36.9; O2SAT 93
== END 2024-07-09 22:19 | disposition home or self-care (01) ==
PROVIDERS: Emergency Provider Surgery; PCP Family Medicine; Visit Provider Surgery
DX: N39.0 Urinary tract infection, site not specified (principal); J44.9 Chronic obstructive pulmonary disease, unspecified; E86.0 Dehydration; F17.210 Nicotine dependence, cigarettes, uncomplicated
CPT/HCPCS: 74176; 80048; 81001; 85025; 87086; 87088; 96361; 96374; 96375; 99283; J7030; A4216; J2405

== ENCOUNTER → 2025-08-15 | Outpatient (CLI) | payer OTHER, SELFPAY ==
--- NOTE | 2025-08-15 11:00 | MRI_ITS ---
PROCEDURE: BRAIN W/WO CONTRAST 08/15/2025 REASON FOR EXAM: MILD COGNITIVE IMPAIRMENT TECHNIQUE: Procedure Code: [id number] Modality: MR Procedure: BRAIN W/WO CONTRAST Multiplanar and multisequence images were obtained. CONTRAST: VOLUME: mL FINDINGS: A partially enhancing, partially calcified well-circumscribed extra-axial mass is noted in the left paramidline at the vertex of the head, abutting the dura and falx. This is most compatible with a parafalcine meningioma. The adjacent calvarium appears unremarkable. A few subtle small foci of FLAIR hyperintensity are noted within the left cerebral white matter, nonspecific and of questionable clinical significance. Otherwise the brain parenchyma appears unremarkable. The friend-white matter differentiation is appropriate. The ventricles are normal in size and configuration. No midline shift. The midline structures are intact, specifically the corpus callosum, septum pellucidum, pituitary gland, and cerebellar vermis. The cervicomedullary junction appears unremarkable. The paranasal sinuses and mastoid air cells are clear. Diffusion-weighted images demonstrate no restricted diffusion. MRI/Brain W/WO Contrast IMPRESSION: Partially enhancing, partially calcified well-circumscribed extra-axial mass in the left paramidline at the vertex, most compatible with a parafalcine meningioma. A few small FLAIR hyperintense foci within the left cerebral white matter, nons pecific and of questionable clinical significance. Reading Location: [id number]
== END | disposition home or self-care (01) ==
PROVIDERS: Referring Provider Psychiatry & Neurology Neurology; Visit Provider Psychiatry & Neurology Neurology
DX: D32.0 Benign neoplasm of cerebral meninges (principal); G31.84 Mild cognitive impairment of uncertain or unknown etiology
CPT/HCPCS: 70553; A9575